=== PATIENT | male | born 1945 | race Caucasian/White ===

== ENCOUNTER 2025-07-24 13:51 | Inpatient (IN) | payer MEDICARE, BC, SELFPAY ==
--- OUTSIDE RECORDS SUMMARY | 2024-01-24 04:30 | XMS_ITS ---
Author Organization [facility] Address [address] [place] [address] Care Team Providers Care Instructor Painting Name Role Phone RYAN Chavez Unavailable [phone] REASON FOR VISIT Personal Hx Of Colon Polyp Z86.010 Encounters Encounter Location Date Provider Diagnosis [facility] [address] [place] [address] 01/24/2024 RYAN HOWE Plan Of Treatment No Information Progress Notes * ALVIN KIMDOB:1945 ( 79 yo M)Acc No.[id number]:01/24/2024 Patient: ALVIN CAMACHO Provider: Nirav HOWE D.O. :1945 A ge:78 Y S ex:Male Date:01/24/2024 Address:[address], [facility] * Images: * Electronic signature of KENNETH HOWE DO on 07/24/2025 at 01:07 PM EDT Sign off status: Pending * Provider: Nirav HOWE D.O. Date: 0 01/24/2024 Generated for Kendy mcgrath/Danilo/eTransmitting on: 1 01:07 PM EDT
--- OUTSIDE RECORDS SUMMARY | 2024-08-15 06:20 | XMS_ITS ---
Author Organization [facility] Address [address] [place] [address] Care Team Providers Care Coal Cager Name Role Phone Not, Entered Primary Care Provider WINNIE Blount Unavailable [phone] Simone Yap Unavailable Unavailable REASON FOR VISIT 2 month f/u Encounters Encounter Location Date Provider Diagnosis [facility] [address] [place] [address] 08/15/2024 WINNIE MAYNARD Plan Of Treatment No Information Progress Notes * Moris KIMDOB:1945 ( 79 yo M)Acc No.[id number]:08/15/2024 Progress Notes Patient: Moris CAMACHO Provider: Fahad Maynard DO :1945 A ge:79 Y S ex:Male Date:08/15/2024 Address:[address] [place], [place] [id number] Pcp:Entered Not Subjective: * Chief Complaints: * 1 . 2 month f/u. * Medical History: Objective: Assessment: Plan: * Treatment: * Billing Information: * Visit Code: * Procedure Codes: * The named appointment provid er may or may not be the originator of this progress note, and it is not deemed complete until electronically signed by the appointment provider. Sign off status: Pending * Provider: Fahad Maynard DO Date: Generated for Diannei alcides/Danilo/eTransmitting on: 05:13 PM EDT
[2025-07-24] VITALS (8 sets, daily range): BP systolic 154–165; BP diastolic 79–90; PULSE 69–87; RESP 16–24; TEMP 36.5; O2SAT 94–95; BMI 29.3
--- NOTE | ~2025-07-24 | MR_ITS ---
EXAMINATION: MR brain/brain stem wo/w con DATE: 07/27/2025 12:39 INDICATION: Loss of consciousness TECHNIQUE: Magnetic resonance imaging (MRI) of the brain and brainstem was performed without and with 20 mL Multihance intravenous contrast. Sequences included sagittal and axial T1-weighted SE, axial diffusion-weighted FS SE, axial 3D SWAN, axial T2-weighted FLAIR, and axial T2-weighted FSE. Postcontrast axial and coronal T1-weighted SE was obtained. Apparent diffusion coefficient (ADC) maps were created. COMPARISON: Head CT dated 07/24/2025 FINDINGS: There are no areas of restricted diffusion to suggest acute infarction. Small old lacunar infarct at the anterior right basal ganglia. No intracranial hemorrhage or abnormal intracranial mass lesion. There are scattered areas of nonspecific increased T2-weighted signal intensity in the cerebral white matter, predominantly involving the deep and periventricular white matter. There are no intraparenchymal signal abnormalities seen on the other pulse sequences. The ventricles are symmetric and normal in size. There are no abnormal extra-axial fluid collections. Flow voids are seen in the cerebral arteries on the T2- weighted sequences consistent with their expected patency. Changes of bilateral intraocular lens replacement. Visualized orbits and soft tissues are unremarkable. There are no areas of abnormal enhancement on the post contrast images. IMPRESSION: 1. 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 No acute intracranial process or abnormally enhancing brain lesions. 2. Moderate scattered nonspecific cerebral white matter T2 hyperintensity which within normal limits for age and likely sequela of chronic small vessel ischemic disease. Reviewed, dictated and finalized at location A. IMPRESSION: 1. 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 No acute intracranial process or abnormally enhancing brain lesions. 2. Moderate scattered nonspecific cerebral white matter T2 hyperintensity which within normal limits for age and likely sequela of chronic small vessel ischem ic disease.
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
--- NOTE | ~2025-07-24 | CT_ITS ---
EXAMINATION: CTA chest PE abdomen pel DATE: 07/24/2025 14:58 INDICATION: Syncope TECHNIQUE: Computed tomography (CT) pulmonary angiogram of the chest was performed with 100 mL Omnipaque-350 intravenous contrast. Additional 3D reconstructions utilizing coronal maximum intensity projection (MIP) were performed. CT of the abdomen and pelvis was performed with intravenous contrast utilizing the same contrast bolus following a short delay. Automated exposure control and iterative reconstruction technique were employed. The dose-length product was 1408.15 mGy-cm. COMPARISON: None FINDINGS: Chest: No pulmonary embolism. Mild dependent atelectasis in bilateral lower lobes. No pneumonia, pulmonary edema, pleural effusion or pneumothorax. Heart size is normal. No pericardial effusion. Thoracic aorta is normal in caliber with no dissection. No pathologically enlarged thoracic lymphadenopathy. Mild thoracic spondylosis. Abdomen/pelvis: Cholecystectomy clips the gallbladder fossa. Liver, spleen, pancreas, bilateral adrenal glands and kidneys are normal. Bladder is normal. Status post prostatectomy. Likely vasectomy clips the left and right sides of the scrotum. Short segment of distal ileum extends into a moderate-sized right inguinal hernia. No bowel obstruction. Normal appendix. There is moderate colonic diverticulosis with a sigmoid predominance. There is no adjacent inflammatory change to suggest diverticulitis. No free intraperitoneal gas or fluid. No pathologically enlarged abdominal or pelvic lymphadenopathy. Mild lumbar sp ondylosis chronic superior endplate compression fracture at L3. Severe right- sided and mild to moderate left-sided hip osteoarthritis. IMPRESSION: 1. No pulmonary embolism or other acute cardiopulmonary disease. 2. Small loop of nonobstructed distal ileum extends into a moderate-sized right inguinal hernia. No bowel obstruction. Reviewed, dictated and finalized at location A.
--- NOTE | ~2025-07-24 | XR_ITS ---
EXAMINATION: XR chest 2V 07/24/2025 14:16 INDICATION: Syncope TECHNIQUE:Frontal and lateral images of the chest were obtained. COMPARISON: None available FINDINGS: Heart is not enlarged. No pneumothorax. No pleural effusion. No free air under the diaphragm. Small opacities in the lower lungs. There is a 7 mm pulmonary nodule in the lower lungs seen in the lateral projection. IMPRESSION: 1. Small opacities in the mid and lower lungs which represents atelectasis/scarring or infiltrates. 2.There is a 7 mm pulmonary nodule in the lower lungs seen in the lateral projection. A chest CT is recommended. Reviewed, dictated and finalized at location Q. IMPRESSION: 1. Small opacities in the mid and lower lungs which represents atelectasis/scar ring or infiltrates. 2.There is a 7 mm pulmonary nodule in the lower lungs seen in the lateral proje ction. A chest CT is recommended.
--- NOTE | ~2025-07-24 | US_ITS ---
EXAMINATION: US carotid duplex BI DATE: 07/24/2025 22:09 INDICATION: Syncope. TECHNIQUE: Grayscale, color Doppler, and pulsed Doppler images of the cervical carotid arteries were obtained. The degree of vessel stenosis is placed in one of the following categories: normal, <50%, 50-69%, >=70% but less than near- occlusion, near-occlusion, or total occlusion. Note that percent stenosis relative to normal distal artery lumen diameter is indirectly measured from velocity measurements as described by Raghavendra, et al. Radiology 2003; 229:340-346. COMPARISON: None. FINDINGS: RIGHT: The right common carotid artery (CCA) peak systolic velocity (PSV) is 81 cm/s. The right internal carotid artery (ICA) PSV is 69 cm/s. The right ICA end- diastolic velocity (EDV) is 16 cm/s. The right ICA/CCA PSV ratio is 0.9. Grayscale and color Doppler images yield an estimate of <50% diameter reduction from plaque in the ICA. There is antegrade flow in the right vertebral artery. LEFT: The left CCA PSV is 77 cm/s. The left ICA PSV is 84 cm/s. The left ICA EDV is 23 cm/s. The left ICA/CCA PSV ratio is 1.1. Grayscale and color Doppler images yield an estimate of <50% diameter reduction from plaque in the ICA. There is antegrade flow in the left vertebral artery. IMPRESSION: 1. <50% stenosis in the right internal carotid artery. 2. <50% stenosis in the left internal carotid artery. Reviewed, dictated and finalized at location E.
--- NOTE | 2025-07-24 13:55 | ECG_ITS ---
Test Date: 2025-07-24 13:59:47 Measurements Intervals [place] Rate: 73 P: -1 SC: 138 QRS: 11 QRSD: 91 T: 30 QT: 365 QTc: 403 Interpretive Statements SINUS RHYTHM EARLY PRECORDIAL R/S TRANSITION BASELINE ARTIFACT- I, III, AVR, AVL, AVF, V1 BORDERLINE ECG No previous ECG available for comparison Electronically Signed On 07-24-2025 14:15:16 CDT by Chris Pham D.O.
[2025-07-24 14:06] LABS: Hematocrit 43.8 % (42.0-52.0); Hemoglobin 15.0 g/dL (14.0-18.0); Immature Granulocyte Percent A 0.2 % (0-0.5); Lymphocytes Absolute Auto 1.68 K/mm3 (0.9-3.2); Mean Corpuscular HGB Conc 34.2 g/dl (32-36); Mean Corpuscular Hemoglobin 32.0 pg (26-34); Mean Corpuscular Volume 93.4 fl (80-100); Nucleated Red Blood Cells Absolute Auto 0.000 K/mm3 (0.0-0.012); Nucleated Red Blood Cells Perc 0.0 % (0.0-0.2); Platelet Count Result 181 k/mm3 (150-375); Red Blood Count 4.69 M/mm3 (4.6-6.20); White Blood Count 4.7 K/mm3 (4.5-10.0)
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
[2025-07-24 14:22] LABS: Alanine Aminotransferase 21 U/L (6-50); Albumin Level 4.5 g/dL (3.5-5.1); Alkaline Phosphatase 66 U/L (38-126); Anion Gap 7 mmol/L (4-12); Aspartate Amino Transferase 22 U/L (17-59); Bilirubin,Total 0.4 mg/dL (0.2-1.3); Blood Urea Nitrogen 16 mg/dL (9-20); Calcium 9.6 mg/dL (8.4-10.2); Carbon Dioxide 25 mmol/L (22-30); Chloride 106 mmol/L (98-107); Estimated CRCL calculation 49 ml/min; Estimated Glomerular Filt Rate 58; Glucose 106 mg/dL (65-110); Potassium 4.7 mmol/L (3.4-5.0); Sodium 138 mmol/L (137-145); Total Protein 7.4 g/dL (6.3-8.2)
[2025-07-24 14:59] LABS: INR 1.0; Prothrombin Time 13.4 Seconds (11.1-14.7)
[2025-07-24 15:00] LABS: Partial Thromboplastin Time 28.8 Seconds (22.3-36.8)
[2025-07-24 15:30] LABS: Magnesium 2.1 mg/dL (1.6-2.3)
[2025-07-24 15:41] LABS: Troponin I < 0.012 ng/mL (0.000-0.034)
--- OUTSIDE RECORDS SUMMARY | 2025-07-24 16:13 | XMS_ITS | Patient Health Record ---
Author Organization [facility] Address [address] [place] [address] Care Team Providers Care Shipping Technician Name Role Phone Not, Entered Primary Care Provider Unavailkathi DONOVANMANWINNIE Unavailable [phone] Simone Yap Unavailable Unavailable Allergies No Known Allergies Reason For Referral No Information Medications Medication SIG (Take, Route, Fr equency, Duration) Notes Start Date End Date Status Simvastatin Unknown Eliquis Unknown Enalapril Maleate Un known Vitamin D Unknown traMADol HCl Unknown Immunizations Vaccine Route Administration Date Status Comme nts zzPPA Unknown 06/13/2024 Administered Social History Tobacco Use: Social History Observation Description Date Details (start date - stop date) Never Smoker NA - NA Tobacco Control (Standard) Question Answer Notes Tobacco use: Nonsmoker AUDIT-C (Standard) Question Answer Notes Did you have a drink contain ing alcohol in the past year? Yes How often did you have six o r more drinks on one occasion in the past year? 4 or more times a week (4 points) How many drinks did you have on a typical day when you were drinking in the past year? 1 or 2 drinks (0 point) How often did you have a dri nk containing alcohol in the past year? 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) Active confirmed Plan Of Treatment Pending Test Test Name Order Date CT Spine Lumbar w/o Contrast 06/23/2024 Insurance Providers Payer Name Payer Address Payer Phone Subscriber Number Group Number Insured Name Patient Relationship to Insured Coverage Start Date Coverage End Date Medicare [address] [place] [address] [id number] Moris Mohamud Self - patient is the insured 5 Blue Cross Blue Shield [address] [place] [address] [id number] Moris Mohamud Self - patient is the insured 4 Medical (General) History Medical History History ICD Code Hypertension High cholesterol Sleep Apnea Surgical History Surgery Date(Month/Year) Prostate Left Wrist Gall Bladder Hospitalization History Reason Date(Month/Year) See Surgical History
--- OUTSIDE RECORDS SUMMARY | 2025-07-24 16:13 | XMS_ITS | Referral Summary ---
Author Organization [employer] ([facility] 05/07/2024) ([employer]) Address [address] [place] [address] Care Team Providers Care Small Business Sales Representative Name Role Phone Jasper Ramirez MD Primary Care Provider [phone] Allergies No known active allergies Medications VARDENAFIL HCL (LEVITRA) 10 MG PO TabIndications: Erectile dysfunction,Cho lesterol serum elevated take 1 Tab by mouth as needed for FOR ERECTILE DYSFUNCTION. 12 Tab 6 0 Active simvastatin (ZOCOR) 10 MG PO TabIndications: Erectile dysfunction,Cho lesterol serum elevated take 1 Tab by mouth once every night at bedtime. Please label bottle must make appointment to get further refills. 90 Tab 1 1 Active Active Problems Problem Noted Date Diagnosed Date Postural lightheadedness 08/01/2008 Elevated serum cholesterol 05/09/2008 Erectile dysfunction 05/09/2008 Social History Tobacco Use Types Packs/Day Years Used Date Smoking Tobacco: Every Day Cigarettes Smokeless Tobacco: Never Alcohol Use Standard Drinks/Week Comments Yes 0.8 (1 standard drink = 0.6 oz p ure alcohol) Sex and Gender Information Value Date Recorded Sex Assigned at Not on file Legal Sex Male 11:20 AM EST Gender Identity Not on file Sexual Orientation Not on file Last Filed Vital Signs Vital Sign Reading Time Taken Comments Blood Pressure 148/78 10/21/2021 1:02 PM EST Pulse 88 10/21/2021 1:02 PM EST Temperature 36.5 C (97.7 F) 10/21/2021 1:02 PM EST Respiratory Rate 18 10/21/2021 1:02 PM EST Oxygen Saturation 94% 10/21/2021 1:02 PM EST Inhaled Oxygen Concentration - - Weight 97.5 kg (215 lb) 10/21/2021 1:02 PM EST Height 185.4 cm (6' 1) 10/21/2021 1:02 PM EST Body Mass Index 28.37 10/21/2021 1:02 PM EST Plan of Treatment Not on file Procedures Procedure Name Priority Date/Time Associated Diagnosis Comments ACUTE HEPATITIS PANEL 01/19/2011 11:45 AM EDT from Last 3 Months or Most Recently Relevant to Health Maintenance Results * ACUTE HEPATITIS PANEL (01/19/2011 11:45 AM EDT) HBSAG Negative (NEG) LIS ANTI HBC IGM Negative IgM anti-HBc not detected.*Does not exclude the possibility *of exposure to or*infection with HBV. (NEG) LIS ANTI-HAV (IGM) Negative IgM anti-HAV not detected.*Does not exclude the possibility *of exposure to or infection with HAV. (NEG) LIS ANTI HCV Negative (NEG) LIS 01/19/2011 11:4 5 AM EDT Jasper Ramirez MD [facility] HBS SEROLOGY ORDERABLES F inal Result LIS from Last 3 Months or Most Recently Relevant to Health Maintenance Care Teams Small Business Sales Representative Relationship Specialty [place] [address] [place] [phone] PCP - General 05/09/08
--- OUTSIDE RECORDS SUMMARY | 2025-07-24 16:13 | XMS_ITS | Clinical Summary ---
Author Organization [employer] ([facility] 05/07/[facility]24) ([employer], [email or web address]) Address [address] [place] [address] Care Team Providers Care Athletic Coordinator Name Role Phone Jasper Ramirez MD Primary Care Provider [phone] Allergies No known active allergies Medications VARDENAFIL [...] Elevated serum cholesterol 05/09/2008 Erectile dysfunction 05/09/2008 Family History Medical History Relation Name Comments Cancer - Colon Mother Cancer - Other Mother Relation Name Status Comments Mother Social History Tobacco Use Types Packs/Day Years [...] 10/21/2021 1:02 PM EST Plan of Treatment Health Maintenance Due Date Last Done Comments SCREENING: DEPRESSION 1957 VACCINE: TETANUS,DIPHTHERIA BOOSTER (TD BOOSTER) EVERY 10 YEARS 1964 VACCINE: ZOSTER (SHINGRIX) (#1) 1995 Advance Care Planning Documentation 2010 SCREENING: FALL RISK 2010 HEALTH MAINTENANCE EXAM (ADULT) 09/01/2011 09/01/2010, 06/05/2009 Pneumococcal Vaccine: 65+ Years (2 of 2 - PCV) 12/21/2020 12/22/2019 VACCINE: INFLUENZA (#1) 2025 07/07/20, 06/26/2020, 07/31/2019, Additional history exists VACCINE: COVID-19 ( season) 2025 07/11/2021, 12/08/2020, 11/17/2020 SCREENING: HEPATITIS C Completed 01/19/2011 VACCINE: HEPATITIS A Aged Out No long er eligible based on patient's age to complete this topic Vaccines: HIB Aged Out No longer elig ible based on patient's age to complete this topic Vaccines: IPV Aged Out No longer elig ible based on patient's age to complete this topic Vaccines: Meningococcal B Aged Out No longer eligible based on patient's age to complete this topic Vaccines: Meningococcal Aged Out No l onger eligible based on patient's age to complete this topic Vaccines: Rotavirus Aged Out No longe r eligible based on patient's age to complete this topic Procedures Procedure Name Priority Date/Time Associated Diagnosis [...] (NEG) LIS 01/19/2011 11:4 5 AM EDT us Jasper Ramirez MD [facility] HBS SEROLOGY ORDERABLES F inal Result LIS from Last 3 Months or Most Recently Relevant to Health Maintenance Care Teams Athletic Coordinator Relationship Specialty [place] [address] [place] [address] PCP - General 05/09/08
--- OUTSIDE RECORDS SUMMARY | 2025-07-24 16:13 | XMS_ITS | Data Portability ---
Author Organization [place] [facility] [place] [facility] [place] [facility], [facility]_PROV OP DIAB EDUCATION_ Address [address] [address] Care Team Providers Care Legal Word Processor Name Role Phone MORIAH NORMAN Referring Provider MORIAH NORMAN Primary Care Provider HEIKE HERBERT Corporate Travel Counselor LUIS A CLEMENS Licensing Registration Examiner AUNDREA LA Gift Officer MEDAROD LONDON Sleep Medicine MORIAH NORMAN Primary Care Provider Assessment Encounter Date Assessment Date Assessment LastModified by Organization Details LastModified Time 12/22/2019 12/22/2019 Medicare wellnes s and age appropriate recommendations regarding safety, fall avoidance, proper diet and nutrition, exercise, and advance directive were reviewed with the patient as well as age appropriate screenings and vaccines from the preventive screenings 5 to 10 year plan, and the patient was given a written copy of the 5 to 10 yr plan. [email or web address] Not available 12/22/2019 15:03:44 12/27/2020 12/27/2020 Medicare wellnes s and age appropriate recommendations regarding safety, fall avoidance, proper diet and nutrition, exercise, and advance directive were reviewed with the patient as well as age appropriate screenings and vaccines from the preventive screenings 5 to 10 year plan, and the patient was given a written copy of the 5 to 10 yr plan. [email or web address] Not available 12/27/2020 14:02:32 Plan of Treatment Reminders Order Date Submit Date Provider Last Modified By Organization Details Last Modified Time Details Appointments None recorded. Lab noninvasive colorectal cancer DNA + occult blood screening, QL, stool - Visit [employer] It Original/use for kit instruction s and additional information . 2021 [facility], [address], [address], [place], [address], 12:18:23 CBC w/ auto diff 2021 [facility] [place] Interface, For Draw Stations, See Lab Location Map, [place], [address], 20:54:56 CMP, serum or plasma 2021 [facility] [place] Interface, For Draw Stations, See Lab Location Map, [place], [address], 21:07:28 lipid panel, serum 2021 [facility] [place] Interface, For Draw Stations, See Lab Location Map, [place], [address], 21:07:27 CBC w/ auto diff 2021 [facility] [place] Interface, For Draw Stations, See Lab Location Map, [place], [address], 08:19:31 CMP, serum or plasma 2021 [facility] [place] Interface, For Draw Stations, See Lab Location Map, [place], [address], 08:19:31 lipid panel, serum 2021 [facility] [place] Interface, For Draw Stations, See Lab Location Map, [place], [address], 03/18/202 2 08:19:31 HbA1c (hemoglobin A1c), blood 2021 [facility] [place] Interface, For Draw Stations, See Lab Location Map, [place], [address], 2 08:19:31 vitamin D, 25-hydroxy, total, serum 2020 021 [facility] [place] Interface, For Draw Stations, See Lab Location Map, [place], [address], 05:01:52 CBC w/ auto diff 2020 021 [facility] [place] Interface, For Draw Stations, See Lab Location Map, [place], [address], 05:01:42 CMP, serum or plasma 2020 021 [facility] [place] Interface, For Draw Stations, See Lab Location Map, [place], [address], 05:01:32 lipid panel, serum 2020 021 [facility] [place] Interface, For Draw Stations, See Lab Location Map, [place], [address], 05:01:42 lipid panel, serum 2020 021 [facility] [place] Interface, For Draw Stations, See Lab Location Map, [place], [address], 05:02:15 CBC w/ auto diff 2020 021 [facility] [place] Interface, For Draw Stations, See Lab Location Map, [place], [address], 05:02:11 CMP, serum or plasma 2020 [facility] [place] Interface, For Draw Stations, See Lab Location Map, [place], [address], 05:01:[address] referral [address] [place], [address], [address], [place], [address], 05:02:05 Procedures None recorded. Surgeries None recorded. Imaging electrocard iogram 2021 [facility] [address], [address], [place], [address], 15:29:28 DEXA 2020 PLACIDO Not available 05:01:32 Medication Orders enalapril maleate 10 mg tablet 2021 [facility] Not available 14:06:53 Patient TargetsNo targets recorded. Patient Instructions Encounter Date Encounter Id Patient Instructions Last Modified By Organization Details Last Modified Time 12/22/2019 [id number] high blood pressure: care instructions [email or web address] Not available 12/22/2019 15:52:49 learning about high blood pressure skehres Not available 12/22/2019 15:52:49 high cholesterol : care instructions skehres Not available 12/22/2019 15:52:49 Continue with a healthy balanced diet and regular exercise. Work to avoid falls by having a safe living environment. In the event that you experience any decline in health, make sure to have your advanced directive in place. Take your medications as directed and if you have any questions or health concerns please contact the office. Provided patient with an updated preventative services checklist for the next 5-10 years. Advised the patient on all screenings and their importance in maintaining good health. Encouraged patient to drink water for overall health and discussed home safety and fall risk prevention measures. Patient verbalized understanding. Will schedule F/U visit with PCP. jesu Not available 12/22/2019 15:18:19 12/27/2020 [id number] high blood pressure: care instructions dlevan Not available 12/27/2020 14:32:39 learning about high blood pressure dlevan Not available 12/27/2020 14:32:39 high cholesterol : care instructions dlevan Not available 12/27/2020 14:32:39 Continue with a healthy balanced diet and regular exercise. Work to avoid falls by having a safe living environment. In the event that you experience any decline in health, make sure to have your advanced directive in place. Take your medications as directed and if you have any questions or health concerns please contact the office. Provided patient with an updated preventative services checklist for the next 5-10 years. Advised the patient on all screenings and their importance in maintaining good health. Encouraged patient to drink water for overall health and discussed home safety and fall risk prevention measures. Patient verbalized understanding. [email or web address] Not available 12/27/2020 14:02:42 Pt educated on fall risk avoidance and safety precautions. Pt advised to get rid of any area rugs or uneven jose elias, as this is a tripping hazard. Pt advised to have hand bars in shower and toilet area. Explained to pt importance of having safety devices in place before something happens, even if never fallen previously. Pt advised of safety mechanisms on stairs and to always have good lighting in home. Discussed pt wearing a fall alert device or having someone call them on a daily basis to check in. [email or web address] Not available 12/27/2020 14:03:05 02/27/2021 [id number] sleep apnea: car e instructions dlevan Not available 02/27/2021 09:32:14 broken wrist: care instructions dlevan Not available 02/27/2021 09:32:14 high blood pressure: care instructions dlevan Not available 02/27/2021 09:32:14 learning about high blood pressure dlevan Not available 02/27/2021 09:32:14 learning about healthy weight dlevan Not available 02/27/2021 09:32:14 high cholesterol : care instructions dlevan Not available 02/27/2021 09:32:13 01/01/2022 [id number] sleep apnea: car e instructions dlevan Not available 01/02/2022 08:19:31 high blood pressure: care instructions dlevan Not available 01/02/2022 08:19:31 learning about high blood pressure dlevan Not available 01/02/2022 08:19:31 learning about healthy weight dlevan Not available 01/02/2022 08:19:31 high blood pressure: care instructions dlevan Not available 01/02/2022 14:06:51 learning about high blood pressure dlevan Not available 01/02/2022 14:06:51 high cholesterol : care instructions dlevan Not available 01/02/2022 08:19:31 We discussed advance planning for 16 minutes. His and he have already taken care of this and all the forms have been appropriately filled out. We went over all his quality measures. And completed the remainder of the Medicare annual wellness visit. His blood pressure medication has been increased and he is to monitor his blood pressure and text me the readings in approximately a week we spoke at length about the importance of excellent control of his blood pressure as he ages. He continues to exercise regularly on the treadmill. He knows he has to go for an annual skin exam for his malignant melanoma and actually he goes twice a year to Dr. Lopez. His lab work was obtained. All his questions were answered. dlevan Not available 01/02/2022 14:02:22 09/08/2022 [id number] sleep apnea: car e instructions dlevan Not available 09/08/2022 14:47:33 high blood pressure: care instructions dlevan Not available 09/08/2022 14:42:26 learning about high blood pressure dlevan Not available 09/08/2022 14:42:26 high cholesterol : care instructions dlevan Not available 09/08/2022 14:47:33 We discussed screening for colon cancer. We discussed the stressors involved with retiring. We discussed his insomnia. We discussed his back pain at length. He is going to a special back clinic next week. He is going to call me and let me know how that goes. I reviewed his previous consultations and laboratory work. Greater than 32 minutes was spent on this case. Moriah Norman DO dlevan Not available 09/08/2022 16:54:39 Reason for Referral Gift Officer Referral for H istory of Malignant melanoma Referring Physician: Moriah Norman, Internal Medicine, Encounter Date: 02/27/2021 Results Created Date Observation Date Name Description Value Unit Range Abnormal Flag Note LastModifiedBy Organization Detail LastModifiedTime 01/04/20 20 01/04/2020 elect rocar diogr am Rate & Rhythm Not Available [facility] [address], [place], [address], 10/06/2018 11:56:57 01/04/20 20 01/04/2020 elect rocar diogr am QRS Not Available [facility] [address], [place], [address], 10/06/2018 11:56:57 01/04/20 20 01/04/2020 elect rocar diogr am NJ Interval Not Available [facility] [address], [place], [address], 10/06/2018 11:56:57 01/04/20 20 01/04/2020 elect rocar diogr am QRS Duration Not Available [facility] [address], [place], [address], 10/06/2018 11:56:57 01/04/20 20 01/04/2020 elect rocar diogr am QT Interval Not Available [facility] [address], [place], [address], 10/06/2018 11:56:57 01/02/20 22 01/01/2022 CBC/P LT/DI FF/IN DICES hemoglobin 15.3 g/dL 13.5-1 7.5 normal OF , CBC AND DIFFE RENTI AL REFER ENCE RANGE S UPDAT ED Not Available [facility] [place] Interface For Draw Stations, See Lab Location Map, [place], [address], 01/02/2022 02:12:38 01/02/20 22 01/01/2022 CBC/P LT/DI FF/IN DICES hematocrit 45.9 % 41.0-5 3.0 normal Not Available [facility] [place] Interface For Draw Stations, See Lab Location Map, [place], [address], 01/02/2022 02:12:38 01/02/20 22 01/01/2022 CBC/P LT/DI FF/IN DICES red blood cell count 4.66 M/uL 4.50-5 .90 normal Not Available [facility] [place] Interface For Draw Stations, See Lab Location Map, [place], [address], 01/02/2022 02:12:38 01/02/20 22 01/01/2022 CBC/P LT/DI FF/IN DICES mean corpuscular volume 98.5 fL 80.0-1 02.0 normal Not Available [facility] Interface For Draw Stations, See Lab Location Map, [place], [address], 01/02/2022 02:12:38 01/02/20 22 01/01/2022 CBC/P LT/DI FF/IN DICES mean corpuscular hemoglobin 32.8 pg 26.0-3 4.0 normal Not Available [facility] [place] Interface For Draw Stations, See Lab Location Map, [place], [address], 01/02/2022 02:12:38 01/02/20 22 01/01/2022 CBC/P LT/DI FF/IN DICES MCHC 33.3 g/dL 31.0-3 7.0 normal Not Available [facility] Interface For Draw Stations, See Lab Location Map, [place], [address], 01/02/2022 02:12:38 01/02/20 22 01/01/2022 CBC/P LT/DI FF/IN DICES RDW 12.6 % 11.0-1 5.5 normal Not Available [facility] Interface For Draw Stations, See Lab Location Map, [place], [address], 01/02/2022 02:12:38 01/02/20 22 01/01/2022 CBC/P LT/DI FF/IN DICES platelet count 246 K/uL 150-40 0 normal Not Available [facility] Interface For Draw Stations, See Lab Location Map, [place], [address], 01/02/2022 02:12:38 01/02/20 22 01/01/2022 CBC/P LT/DI FF/IN DICES WBC 4.70 K/uL 4.00-1 1.00 normal Not Available [facility] Interface For Draw Stations, See Lab Location Map, [place], [address], 01/02/2022 02:12:38 01/02/20 22 01/01/2022 CBC/P LT/DI FF/IN DICES nucleated RBC 0.0 /100_ WBC Not Available [facility] [place] Interface For Draw Stations, See Lab Location Map, [place], [address], 01/02/2022 02:12:38 01/02/20 22 01/01/2022 CBC/P LT/DI FF/IN DICES neutrophils 44.9 % Not Available [facility] [place] Interface For Draw Stations, See Lab Location Map, [place], [address], 01/02/2022 02:12:38 01/02/20 22 01/01/2022 CBC/P LT/DI FF/IN DICES absolute PMN 2.11 K/uL 1.80-7 .50 normal Not Available [facility] Interface For Draw Stations, See Lab Location Map, [place], [address], 01/02/2022 02:12:38 01/02/20 22 01/01/2022 CBC/P LT/DI FF/IN DICES lymphocytes 43.4 % Not Available [facility] [place] Interface For Draw Stations, See Lab Location Map, [place], [address], 01/02/2022 02:12:38 01/02/20 22 01/01/2022 CBC/P LT/DI FF/IN DICES monocytes 9.8 % Not Available [facility] Interface For Draw Stations, See Lab Location Map, [place], [address], 01/02/2022 02:12:38 01/02/20 22 01/01/2022 CBC/P LT/DI FF/IN DICES eosinophils 1.5 % Not Available [facility] Interface For Draw Stations, See Lab Location Map, [place], [address], 01/02/2022 02:12:38 01/02/20 22 01/01/2022 CBC/P LT/DI FF/IN DICES basophils 0.2 % Not Available [facility] Interface For Draw Stations, See Lab Location Map, [place], [address], 01/02/2022 02:12:38 01/02/20 22 01/01/2022 CBC/P LT/DI FF/IN DICES imm grans 0.2 % 0.0-1. 0 normal Not Available [facility] Interface For Draw Stations, See Lab Location Map, [place], [address], 01/02/2022 02:12:38 01/02/20 22 01/01/2022 CBC/P LT/DI FF/IN DICES absolute lymph 2.04 K/uL 1.00-5 .00 normal Not Available [facility] Interface For Draw Stations, See Lab Location Map, [place], [address], 01/02/2022 02:12:38 01/02/20 22 01/01/2022 CBC/P LT/DI FF/IN DICES absolute mono 0.46 K/uL 0.00-1 .00 normal Not Available [facility] Interface For Draw Stations, See Lab Location Map, [place], [address], 01/02/2022 02:12:38 01/02/20 22 01/01/2022 CBC/P LT/DI FF/IN DICES absolute eos 0.07 K/uL 0.00-0 .40 normal Not Available [facility] [place] Interface For Draw Stations, See Lab Location Map, [place], [address], 01/02/2022 02:12:38 01/02/20 22 01/01/2022 CBC/P LT/DI FF/IN DICES absolute baso 0.01 K/uL 0.00-0 .20 normal Test Perfo rmed By: ALAINA WATKINS [facility] . [address] [place], [place],[address] Not Available [facility] Interface For Draw Stations, See Lab Location Map, [place], [address], 01/02/2022 02:12:38 01/02/20 22 01/01/2022 GLYCO -HGB (A1C) hemoglobin A1C 5.8 % 4.0-6. 0 normal HbA1c >6.4% Diagn ostic for Diabe eden. Confi rm with a repea t HbA1c . HbA1c 5.7-6 .4% Indic ates Pre-D iabet es Test Perfo rmed By: ALAINA NULL [facility] . [address] [place], [place] Not Available [facility] [place] Interface For Draw Stations, See Lab Location Map, [place], [address], 01/02/2022 04:42:09 01/02/20 22 01/01/2022 LIPID PANEL cholesterol, total 124 mg/dL 140-19 9 low NCEP Guide lines ATP III Adult s Child /Adol escen t Kurtis able <200 <170 Borde rline 200-2 39 170-1 99 High >239 >199 Not Available [facility] [place] Interface For Draw Stations, See Lab Location Map, [place], [address], 01/02/2022 05:33:50 01/02/20 22 01/01/2022 LIPID PANEL triglyceride 98 mg/dL 30-149 normal NCEP Guide lines (Adul t Treat ment Panel III) Amita l <150 Borde rline 150-2 00 High >200 Not Available [facility] [place] Interface For Draw Stations, See Lab Location Map, [place], [address], 01/02/2022 05:33:50 01/02/20 22 01/01/2022 LIPID PANEL HDL cholesterol 47 mg/dL 40-75 normal NCEP Guide lines (Adul t Treat ment Panel III) Optim al >60 mg/dL Kurtis able >40 mg/dL Undes irabl e <40 mg/dL Not Available [facility] [place] Interface For Draw Stations, See Lab Location Map, [place], [address], 01/02/2022 05:33:50 01/02/20 22 01/01/2022 LIPID PANEL LDL-calculat ed 57 mg/dL 60-99 low NCEP Guide lines ATP III Adult s Child /Adol escen t Optim al <100 <110 Borde rline 130-1 60 >130 High >160 Not Available [facility] [place] Interface For Draw Stations, See Lab Location Map, [place], [address], 01/02/2022 05:33:50 01/02/20 22 01/01/2022 LIPID PANEL serum turbidity CLEAR clear Test Perfo rmed By: ALAINA NULL [facility] . [address], [place] Not Available [facility] [place] Interface For Draw Stations, See Lab Location Map, [place], [address], 01/02/2022 05:33:50 01/02/20 22 01/01/2022 COMP METAB OLIC PANEL W/FAS TING GLUCO SE urea nitrogen 16 mg/dL 8-20 normal Not Available [facility] [place] Interface For Draw Stations, See Lab Location Map, [place], [address], 01/02/2022 05:33:50 01/02/20 22 01/01/2022 COMP METAB OLIC PANEL W/FAS TING GLUCO SE creatinine 1.28 mg/dL 0.70-1 .50 normal Not Available [facility] [place] Interface For Draw Stations, See Lab Location Map, [place], [address], 01/02/2022 05:33:50 01/02/20 22 01/01/2022 COMP METAB OLIC PANEL W/FAS TING GLUCO SE urea nitrogen/cre atinine ratio 12.5 12.0-2 0.0 normal Not Available [facility] [place] Interface For Draw Stations, See Lab Location Map, [place], [address], 01/02/2022 05:33:50 01/02/20 22 01/01/2022 COMP METAB OLIC PANEL W/FAS TING GLUCO SE GFR,calculat ed 54 60-130 low Not Available [facility] Interface For Draw Stations, See Lab Location Map, [place], [address], 01/02/2022 05:33:50 01/02/20 22 01/01/2022 COMP METAB OLIC PANEL W/FAS TING GLUCO SE GFR,af AM 63 60-130 normal Units for GFR are mL/mi n/1.7 3m2 The calcu lated GFR is based on the CKD-E PI equat ion to scree n for CKD. The calcu latio n compe nsate s for femal e, male, and Afric an Ameri can diffe rence s. For some clini maximo condi tions inclu ding extre mes of age and body size, GFR clear ance metho ds may be more appro priat e. Not Available [facility] [place] Interface For Draw Stations, See Lab Location Map, [place], [address], 01/02/2022 05:33:50 01/02/20 22 01/01/2022 COMP METAB OLIC PANEL W/FAS TING GLUCO SE sodium 138 mmol/ L 135-14 5 normal Not Available [facility] [place] Interface For Draw Stations, See Lab Location Map, [place], [address], 01/02/2022 05:33:50 01/02/20 22 01/01/2022 COMP METAB OLIC PANEL W/FAS TING GLUCO SE potassium 4.4 mmol/ L 3.5-5. 4 normal Not Available [facility] [place] Interface For Draw Stations, See Lab Location Map, [place], [address], 01/02/2022 05:33:50 01/02/20 22 01/01/2022 COMP METAB OLIC PANEL W/FAS TING GLUCO SE chloride 105 mmol/ L 98-109 normal Not Available [facility] [place] Interface For Draw Stations, See Lab Location Map, [place], [address], 01/02/2022 05:33:50 01/02/20 22 01/01/2022 COMP METAB OLIC PANEL W/FAS TING GLUCO SE anion gap 9 mmol/ L 4-14 normal Not Available [facility] Interface For Draw Stations, See Lab Location Map, [place], [address], 01/02/2022 05:33:50 01/02/20 22 01/01/2022 COMP METAB OLIC PANEL W/FAS TING GLUCO SE CO2 content 24 mmol/ L 23-34 normal Not Available [facility] Interface For Draw Stations, See Lab Location Map, [place], [address], 01/02/2022 05:33:50 01/02/20 22 01/01/2022 COMP METAB OLIC PANEL W/FAS TING GLUCO SE calcium 9.9 mg/dL 8.4-10 .5 normal Not Available [facility] [place] Interface For Draw Stations, See Lab Location Map, [place], [address], 01/02/2022 05:33:50 01/02/20 22 01/01/2022 COMP METAB OLIC PANEL W/FAS TING GLUCO SE glucose-fast ing 90 mg/dL 70-99 normal Pre-D iabet es: 100-1 25 mg/dL Provi siona l for Diabe eden: >125 mg/dL Confi rm with a repea t test on a day. Not Available [facility] [place] Interface For Draw Stations, See Lab Location Map, [place], [address], 01/02/2022 05:33:50 01/02/20 22 01/01/2022 COMP METAB OLIC PANEL W/FAS TING GLUCO SE bilirubin total 0.4 mg/dL 0.0-1. 5 normal Not Available [facility] Interface For Draw Stations, See Lab Location Map, [place], [address], 01/02/2022 05:33:50 01/02/20 22 01/01/2022 COMP METAB OLIC PANEL W/FAS TING GLUCO SE alkaline phosphatase (total) 65 IU/L 20-130 normal Not Available [facility] [place] Interface For Draw Stations, See Lab Location Map, [place], [address], 01/02/2022 05:33:50 01/02/20 22 01/01/2022 COMP METAB OLIC PANEL W/FAS TING GLUCO SE SGPT(ALT) 23 U/L 0-45 normal Not Available [facility] Interface For Draw Stations, See Lab Location Map, [place], [address], 01/02/2022 05:33:50 01/02/20 22 01/01/2022 COMP METAB OLIC PANEL W/FAS TING GLUCO SE SGOT(AST) 17 IU/L 0-45 normal Not Available [facility] Interface For Draw Stations, See Lab Location Map, [place], [address], 01/02/2022 05:33:50 01/02/20 22 01/01/2022 COMP METAB OLIC PANEL W/FAS TING GLUCO SE total protein 6.9 g/dL 6.2-8. 1 normal Not Available [facility] Interface For Draw Stations, See Lab Location Map, [place], [address], 01/02/2022 05:33:50 01/02/20 22 01/01/2022 COMP METAB OLIC PANEL W/FAS TING GLUCO SE albumin 4.9 g/dL 3.5-5. 0 normal Not Available [facility] Interface For Draw Stations, See Lab Location Map, [place], [address], 01/02/2022 05:33:50 01/02/20 22 01/01/2022 COMP METAB OLIC PANEL W/FAS TING GLUCO SE globulin 2.0 g/dL 1.8-3. 6 normal Not Available [facility] [facility] Interface For Draw Stations, See Lab Location Map, [place], [address], 01/02/2022 05:33:50 01/02/20 22 01/01/2022 COMP METAB OLIC PANEL W/FAS TING GLUCO SE alb/glob ratio 2.5 1.0-2. 4 high Test Perfo rmed By: [facility] [address] [place], [place] Not Available [facility] Interface For Draw Stations, See Lab Location Map, [place], [address], 01/02/2022 05:33:50 09/08/20 22 09/08/2022 CBC/P LT/DI FF/IN DICES hemoglobin 14.4 g/dL 13.5-1 7.5 normal Not Available [facility] Interface For Draw Stations, See Lab Location Map, [place], [address], 09/08/2022 20:54:56 09/08/20 22 09/08/2022 CBC/P LT/DI FF/IN DICES hematocrit 42.7 % 41.0-5 3.0 normal Not Available [facility] Interface For Draw Stations, See Lab Location Map, [place], [address], 09/08/2022 20:54:56 09/08/20 22 09/08/2022 CBC/P LT/DI FF/IN DICES red blood cell count 4.46 M/uL 4.50-5 .90 low Not Available [facility] Interface For Draw Stations, See Lab Location Map, [place], [address], 09/08/2022 20:54:56 09/08/20 22 09/08/2022 CBC/P LT/DI FF/IN DICES mean corpuscular volume 95.7 fL 80.0-1 02.0 normal Not Available [facility] Interface For Draw Stations, See Lab Location Map, [place], [address], 09/08/2022 20:54:56 09/08/20 22 09/08/2022 CBC/P LT/DI FF/IN DICES mean corpuscular hemoglobin 32.3 pg 26.0-3 4.0 normal Not Available [facility] Interface For Draw Stations, See Lab Location Map, [place], [address], 09/08/2022 20:54:56 09/08/20 22 09/08/2022 CBC/P LT/DI FF/IN DICES MCHC 33.7 g/dL 31.0-3 7.0 normal Not Available [facility] Interface For Draw Stations, See Lab Location Map, [place], [address], 09/08/2022 20:54:56 09/08/20 22 09/08/2022 CBC/P LT/DI FF/IN DICES RDW 12.6 % 11.0-1 5.5 normal Not Available [facility] Interface For Draw Stations, See Lab Location Map, [place], [address], 09/08/2022 20:54:56 09/08/20 22 09/08/2022 CBC/P LT/DI FF/IN DICES platelet count 178 K/uL 150-40 0 normal Not Available [facility] Interface For Draw Stations, See Lab Location Map, [place], [address], 09/08/2022 20:54:56 09/08/20 22 09/08/2022 CBC/P LT/DI FF/IN DICES WBC 4.19 K/uL 4.00-1 1.00 normal Not Available [facility] Interface For Draw Stations, See Lab Location Map, [place], [address], 09/08/2022 20:54:56 09/08/2009/08/2022 CBC/P LT/DI FF/IN DICES nucleated RBC 0.0 /100_ WBC Not Available [facility] Interface For Draw Stations, See Lab Location Map, [place], [address], 09/08/2022 20:54:56 09/08/20 22 09/08/2022 CBC/P LT/DI FF/IN DICES neutrophils 47.5 % Not Available [facility] [place] Interface For Draw Stations, See Lab Location Map, [place], [address], 09/08/2022 20:54:56 09/08/20 22 09/08/2022 CBC/P LT/DI FF/IN DICES absolute PMN 1.99 K/uL 1.80-7 .50 normal Not Available [facility] Interface For Draw Stations, See Lab Location Map, [place], [address], 09/08/2022 20:54:56 09/08/2009/08/2022 CBC/P LT/DI FF/IN DICES lymphocytes 36.3 % Not Available [facility] [place] Interface For Draw Stations, See Lab Location Map, [place], [address], 09/08/2022 20:54:56 09/08/20 22 09/08/2022 CBC/P LT/DI FF/IN DICES monocytes 13.1 % Not Available [facility] Interface For Draw Stations, See Lab Location Map, [place], [address], 09/08/2022 20:54:56 09/08/20 22 09/08/2022 CBC/P LT/DI FF/IN DICES eosinophils 2.4 % Not Available [facility] [place] Interface For Draw Stations, See Lab Location Map, [place], [address], 09/08/2022 20:54:56 09/08/20 22 09/08/2022 CBC/P LT/DI FF/IN DICES basophils 0.5 % Not Available [facility] Interface For Draw Stations, See Lab Location Map, [place], [address], 09/08/2022 20:54:56 09/08/20 22 09/08/2022 CBC/P LT/DI FF/IN DICES imm grans 0.2 % 0.0-1. 0 normal Not Available [facility] Interface For Draw Stations, See Lab Location Map, [place], [address], 09/08/2022 20:54:56 09/08/20 22 09/08/2022 CBC/P LT/DI FF/IN DICES absolute lymph 1.52 K/uL 1.00-5 .00 normal Not Available [facility] Interface For Draw Stations, See Lab Location Map, [place], [address], 09/08/2022 20:54:56 09/08/20 22 09/08/2022 CBC/P LT/DI FF/IN DICES absolute mono 0.55 K/uL 0.00-1 .00 normal Not Available [facility] Interface For Draw Stations, See Lab Location Map, [place], [address], 09/08/2022 20:54:56 09/08/20 22 09/08/2022 CBC/P LT/DI FF/IN DICES absolute eos 0.10 K/uL 0.00-0 .40 normal Not Available [facility] Interface For Draw Stations, See Lab Location Map, [place], [address], 09/08/2022 20:54:56 09/08/20 22 09/08/2022 CBC/P LT/DI FF/IN DICES absolute baso 0.02 K/uL 0.00-0 .20 normal Test Perfo rmed By: ALAINA NULL [facility] . [address], [place] Not Available [facility] Interface For Draw Stations, See Lab Location Map, [place], [address], 09/08/2022 20:54:56 09/08/20 22 09/08/2022 LIPID PANEL cholesterol, total 132 mg/dL 140-19 9 low NCEP Guide lines ATP III Adult s Child /Adol escen t Kurtis able <200 <170 Borde rline 200-2 39 170-1 99 High >239 >199 Not Available [facility] Interface For Draw Stations, See Lab Location Map, [place], [address], 09/08/2022 21:07:27 09/08/20 22 09/08/2022 LIPID PANEL triglyceride 140 mg/dL 30-149 normal NCEP Guide lines (Adul t Treat ment Panel III) Amita l <150 Borde rline 150-2 00 High >200 Not Available [facility] Interface For Draw Stations, See Lab Location Map, [place], [address], 09/08/2022 21:07:27 09/08/20 22 09/08/2022 LIPID PANEL HDL cholesterol 42 mg/dL 40-75 normal NCEP Guide lines (Adul t Treat ment Panel III) Optim al >60 mg/dL Kurtis able >40 mg/dL Undes irabl e <40 mg/dL Not Available [facility] Interface For Draw Stations, See Lab Location Map, [place], [address], 09/08/2022 21:07:27 09/08/20 22 09/08/2022 LIPID PANEL LDL-calculat ed 62 mg/dL 60-99 normal NCEP Guide lines ATP III Adult s Child /Adol escen t Optim al <100 <110 Borde rline 130-1 60 >130 High >160 Not Available [facility] Interface For Draw Stations, See Lab Location Map, [place], [address], 09/08/2022 21:07:27 09/08/20 22 09/08/2022 LIPID PANEL serum turbidity CLEAR clear Test Perfo rmed By: [facility] . [address] [place], [place] Not Available [facility] Interface For Draw Stations, See Lab Location Map, [place], [address], 09/08/2022 21:07:27 09/08/20 22 09/08/2022 COMP METAB OLIC PANEL W/FAS TING GLUCO SE urea nitrogen 15 mg/dL 8-20 normal Not Available [facility] Interface For Draw Stations, See Lab Location Map, [place], [address], 09/08/2022 21:07:28 09/08/20 22 09/08/2022 COMP METAB OLIC PANEL W/FAS TING GLUCO SE creatinine 0.94 mg/dL 0.70-1 .50 normal Not Available [facility] Interface For Draw Stations, See Lab Location Map, [place], [address], 09/08/2022 21:07:28 09/08/20 22 09/08/2022 COMP METAB OLIC PANEL W/FAS TING GLUCO SE urea nitrogen/cre atinine ratio 16.0 12.0-2 0.0 normal Not Available [facility] Interface For Draw Stations, See Lab Location Map, [place], [address], 09/08/2022 21:07:28 09/08/20 22 09/08/2022 COMP METAB OLIC PANEL W/FAS TING GLUCO SE GFR,calculat ed 84 60-130 normal Units for GFR are mL/mi n/1.7 3m2 The calcu lated GFR is based on the CKD-E PI equat ion to scree n for CKD. The calcu latio n compe nsate s for femal e and male diffe rence s. For some clini maximo condi tions inclu ding extre mes of age and body size, GFR clear ance metho ds may be more appro priat e. Not Available [facility] Interface For Draw Stations, See Lab Location Map, [place], [address], 09/08/2022 21:07:28 09/08/20 22 09/08/2022 COMP METAB OLIC PANEL W/FAS TING GLUCO SE sodium 138 mmol/ L 135-14 5 normal Not Available [facility] Interface For Draw Stations, See Lab Location Map, [place], [address], 09/08/2022 21:07:28 09/08/20 22 09/08/2022 COMP METAB OLIC PANEL W/FAS TING GLUCO SE potassium 4.5 mmol/ L 3.5-5. 4 normal Not Available [facility] Interface For Draw Stations, See Lab Location Map, [place], [address], 09/08/2022 21:07:28 09/08/20 22 09/08/2022 COMP METAB OLIC PANEL W/FAS TING GLUCO SE chloride 104 mmol/ L 98-109 normal Not Available [facility] Interface For Draw Stations, See Lab Location Map, [place], [address], 09/08/2022 21:07:28 09/08/20 22 09/08/2022 COMP METAB OLIC PANEL W/FAS TING GLUCO SE anion gap 8 mmol/ L 4-14 normal Not Available [facility] Interface For Draw Stations, See Lab Location Map, [place], [address], 09/08/2022 21:07:28 09/08/20 22 09/08/2022 COMP METAB OLIC PANEL W/FAS TING GLUCO SE CO2 content 26 mmol/ L 23-34 normal Not Available [facility] Interface For Draw Stations, See Lab Location Map, [place], [address], 09/08/2022 21:07:28 09/08/20 22 09/08/2022 COMP METAB OLIC PANEL W/FAS TING GLUCO SE calcium 9.6 mg/dL 8.4-10 .5 normal Not Available [facility] Interface For Draw Stations, See Lab Location Map, [place], [address], 09/08/2022 21:07:28 09/08/20 22 09/08/2022 COMP METAB OLIC PANEL W/FAS TING GLUCO SE glucose-fast ing 103 mg/dL 70-99 high Pre-D iabet es: 100-1 25 mg/dL Provi siona l for Diabe eden: >125 mg/dL Confi rm with a repea t test on a . Not Available [facility] Interface For Draw Stations, See Lab Location Map, [place], [address], 09/08/2022 21:07:28 09/08/20 22 09/08/2022 COMP METAB OLIC PANEL W/FAS TING GLUCO SE bilirubin total 0.4 mg/dL 0.0-1. 5 normal Not Available [facility] Interface For Draw Stations, See Lab Location Map, [place], [address], 09/08/2022 21:07:28 09/08/20 22 09/08/2022 COMP METAB OLIC PANEL W/FAS TING GLUCO SE alkaline phosphatase (total) 65 IU/L 20-130 normal Not Available [facility] [place] Interface For Draw Stations, See Lab Location Map, [place], [address], 09/08/2022 21:07:28 09/08/20 22 09/08/2022 COMP METAB OLIC PANEL W/FAS TING GLUCO SE SGPT(ALT) 19 U/L 0-45 normal Not Available [facility] Interface For Draw Stations, See Lab Location Map, [place], [address], 09/08/2022 21:07:28 09/08/20 22 09/08/2022 COMP METAB OLIC PANEL W/FAS TING GLUCO SE SGOT(AST) 14 IU/L 0-45 normal Not Available [facility] Interface For Draw Stations, See Lab Location Map, [place], [address], 09/08/2022 21:07:28 09/08/20 22 09/08/2022 COMP METAB OLIC PANEL W/FAS TING GLUCO SE total protein 6.6 g/dL 6.2-8. 1 normal Not Available [facility] Interface For Draw Stations, See Lab Location Map, [place], [address], 09/08/2022 21:07:28 09/08/20 22 09/08/2022 COMP METAB OLIC PANEL W/FAS TING GLUCO SE albumin 4.6 g/dL 3.5-5. 0 normal Not Available [facility] Interface For Draw Stations, See Lab Location Map, [place], [address], 09/08/2022 21:07:28 09/08/20 22 09/08/2022 COMP METAB OLIC PANEL W/FAS TING GLUCO SE globulin 2.0 g/dL 1.8-3. 6 normal Not Available [facility] Interface For Draw Stations, See Lab Location Map, [place], [address], 09/08/2022 21:07:28 09/08/20 22 09/08/2022 COMP METAB OLIC PANEL W/FAS TING GLUCO SE alb/glob ratio 2.3 1.0-2. 4 normal Test Perfo rmed By: ALAINA NULL [facility] . [address] [place], [place],[address] Not Available [facility] Interface For Draw Stations, See Lab Location Map, [place], [address], 09/08/2022 21:07:28 01/31/20 24 01/31/2024 SURGI MAXIMO PATHO LOGY surgical pathology SEE RESULT S BELOW [facility] [address] [place] [place] [address] [place], [place] Phone : [phone] Phone : Fax: Fax: ----- ----- ----- ----- ----- ----- ----- ----- ----- ----- ----- ----- ----- ----- ----- ----- Name: QUEENIE ROMEO Age/S ex: 78/M Locat ion: [id number] Unit# : [id number] Statu s: REG CLI Room/ Bed: Re01/30 Disch : Att Dr: JACQUELINE Berg DO ----- ----- ----- ----- ----- ----- ----- ----- ----- ----- ----- ----- ----- ----- ----- ----- Spec #: [id number] Recd: 01/31-0 751 Statu s: ADARSH Schmitt #: [id number] SpTyp e: SURG Sub Dr: JACQUELINE Berg DO CLINI MAXIMO HISTO RY Perso nal histo ry of colon polyp s, famil y histo ry of colon cance r in mothe r GROSS DESCR IPTIO N Sourc e of speci men: 1. Cecum polyp 2. Ascen ding polyp 1. Recei priyanka in forma madelyn label ed cecu m polyp are multi ple piece s of pierce tissu e measu ring 9 x 8 x 1 mm in aggre gate. All in one. 2. Recei priyanka in forma madelyn label ed asce nding polyp are three piece s of pierce tissu e measu ring from 1-3 mm. All in one. ec/jf /AP DIAGN OSIS 1. CECUM POLYP , BIOPS Y: PORTI ONS OF TUBUL AR ADENO MA. 2. ASCEN DING COLON POLYP , BIOPS Y: PORTI ONS OF TUBUL AR ADENO MA. ----- ----- ----- ----- ----- ----- ----- ----- ----- ----- ----- ----- ----- ----- ----- ----- Lilian FRANK MD 02/01 1237 ----- ----- ----- ----- ----- ----- ----- ----- ----- ----- ----- ----- ----- ----- ----- ----- END OF REPOR T ORDER ED BY: ELINOR TAMAYO COPIE S SENT TO: FAIZA WILLSON , THIS IS A COPIE S TO REPOR T Not Available [facility] Interface For Draw Stations, See Lab Location Map, [place], [address], 02/02/2024 12:39:43 09/08/2010/06/2022 elect rocar diogr am No observ ation record ed. [facility] Receptionist [id number], [place], [address], 10/06/2022 11:19:52 09/08/20 elect rocar diogr am No observ ation record ed. [email or web address] Not Available 2021 15:29:52 Result Notes None recorded. 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 Nelia Fabby Tres edt [place] [facility] [place] 9 14:01:25 Hyperlip idemia 28285901 Active 2014 Moriah Norman DO [address] [place], [address], [place] [facility] [place] 9 15:06:57 Impotenc e of organic origin Completed 201411/11/2018 Nelia Joshua edt [place] [facility] [place] 9 13:48:23 [facility] hyperten forrest 13833436 Active 2017 Moriah Norman DO [address] [place], [address], [place] [facility] [place] 8 11:50:41 Plantar fasciiti s 398492388 Completed 201710/06/2018 Moriah Norman [place] [address] [place], [address], [place] [facility] [place] 8 12:00:07 Primary malignan t neoplasm of prostate 47069970 Completed 201710/06/2018 Moriah Norman DO [address] [place], [address], [place] [facility] [place] 9 13:06:09 Primary malignan t neoplasm of prostate 98342442 Completed 201710/06/2018 Moriah Norman DO [address] [place], [address], [place] [facility] [place] 9 13:06:09 Primary malignan t neoplasm of prostate 48735027 Active 2018 Moriah Norman DO [address] [place], [address], [place] [facility] [place] 9 13:06:09 Impotenc e of organic origin Active 2018 Nelia Barrios Tres edt null[place] [facility] [place] 9 13:48:23 Acquired hallux valgus 64108666 Active 2018 Moriah Norman DO [address] [place], [address], [place] [facility] [place] 9 11:56:41 Congenit al convex pes valgus Active 2018 Moriah Norman DO [address] [place], [address], [place] [facility] [place] 9 11:57:54 History of Malignan t melanoma 471747167 Completed 201807/31/2019 Removal Reason: its a family history of melanoma Moriah Norman DO [address] [place], [address], [place] [facility] [place] 9 12:55:15 Body mass index 25-29 - overweig ht 434842803 Active 2020 Nelia Fabby Joshua edt null, [place] [facility] [place] 1 11:04:21 Obstruct alexandra sleep apnea syndrome 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 Procedures Surgical History Date Name Laterality Status Provider Name and Address Organization Details Recorded Time 022 * Fall Risk Assessment completed Moriah Norman DO [address] [place], [address], [place] [facility] [place] 01/02/2022 13:59:27 021 * Fall Risk Assessment completed Nelia Dangelodt [place] [facility] [place] 12/27/2020 14:02:07 020 * Fall Risk Assessment completed Nelia Dangelodt [place] [facility] [place] 12/22/2019 15:01:22 020 Cataract Surgery completed Nelia Dangelodt [place] [facility] [place] 12/27/2020 14:01:43 019 * AUDIT-C Questionnaire completed Nelia Syed [place] [facility] [place] 11/11/2018 13:26:43 019 * Fall Risk Assessment completed Nelia Dangelodt [place] [facility] [place] 11/11/2018 13:26:47 019 Cataract Surgery completed Nelia Dangelodt [place] [facility] [place] 12/27/2020 14:01:31 010 prostatectomy completed Nelia Dangelodt [place] [facility] [place] 11/11/2018 13:54:19 008 Cholecystectomy completed Nelia Kelleystaedt [place] [facility] [place] 11/11/2018 13:54:02 995 Hernia Repair completed Nelia Kelleystaedt [place] [facility] [place] 11/11/2018 13:54:43 980 Vasectomy completed Nelia Syed [place] [facility] [place] 11/11/2018 13:54:31 Imaging Results None recorded. Procedure Notes None recorded. Medical Equipment None Reported. Allergies No known drug allergies Medications Name Sig Start Date Stop Date Status Note LastModified by Organization Details LastModified Time enalapril maleate 10 mg tablet take 1 tablet by mouth twice a day active Not Available Not Available No t Available enalapril maleate 5 mg tablet take 1 tablet by mouth once daily 01/02 completed Not Available Not Available Not Available peg-electro lyte solution 420 gram oral solution 12/31 completed Not Available Not Available Not Available tramadol 50 mg tablet take 1 to 2 tablets by mouth every 6 hours if needed for pain 09/08 completed Not Available Not Available Not Available sildenafil 100 mg tablet take 1 tablet by mouth once daily if needed active Not Available Not Available No t Available simvastatin 20 mg tablet take 1 tablet by mouth at bedtime active Not Available Not Available No t Available fluorometho lone 0.1 % eye drops,suspe nsion instill 1 drop into left eye four times a day 01/01 completed Not Available Not Available Not Available brimonidine 0.2 % eye drops instill 1 drop into both eyes twice a day 09/08 completed Not Available Not Available Not Available mupirocin 2 % topical ointment apply to affected area ON THE SCALP twice a day active Not Available Not Available No t Available timolol maleate 0.5 % eye drops INSTILL 1 DROP IN AFFECTED EYE(S) TWICE A DAY active Not Available Not Available No t Available Alphagan P 0.1 % eye drops instill 1 drop INTO AFFECTED EYE(S) every 8 hours 09/08 completed Not Available Not Available Not Available Shingrix (PF) 50 mcg/0.5 mL intramuscul ar suspension, kit inject 0.5 millilite r intramusc ularly active Not Available Not Available No t Available Vitals Date Recorded Body height Body mass index (BMI) Body weight Pain severity - 0-10 verbal numeric rating [Score] - Reported Systolic And Diastolic Provider Name and Address Organization Details Last Updated DateTime 12/22/2019 185.42 cm 28.4 kg/m2 34979.3 6 g 0 150/80 mm[Hg] Nelia Syed [place] [facility] [place] 0 14:53:58 Date Recorded Body height Body mass index (BMI) Body weight Body temperature Pain severity - 0-10 verbal numeric rating [Score] - Reported Systolic And Diastolic Provider Name and Address Organization Details Last Updated DateTime 1 185.42 cm 26.8 kg/m2 41223.2 5 g 97.9 [degF] 0 134/80 mm[Hg] Nelia tong [place] [facility] [place] 1 13:48:26 Date Recorded Body height Body mass index (BMI) Body weight Heart rate Body temperature Oxygen saturation Oxygen saturation in Arterial blood by Pulse oximetry Pain severity - 0-10 verbal numeric rating [Score] - Reported Systolic And Diastolic Systolic And Diastolic Provider Name and Address Organization Details Last Updated DateTime 2 185.42 cm 27.8 kg/m2 22317.9 9 g 92 /min 98.3 [degF] 95 % 95 % 0 156/77 mm[Hg] 145/78 mm[Hg] Joi Carter [place] [facility] [place] 2 16:21:09 Date Recorded Body height Body mass index (BMI) Body weight Heart rate Respiratory rate Body temperature Oxygen saturation Oxygen saturation in Arterial blood by Pulse oximetry Systolic And Diastolic Provider Name and Address Organization Details Last Updated DateTime 1 185.42 cm 26.9 kg/m2 11888.8 4 g 66 /min 16 /min 97.9 [degF] 94 % 94 % 141/91 mm[Hg] Sona Fontana [place] [facility] [place] 1 08:43:48 Date Recorded Body height Body mass index (BMI) Body weight Heart rate Body temperature Oxygen saturation Oxygen saturation in Arterial blood by Pulse oximetry Systolic And Diastolic Provider Name and Address Organization Details Last Updated DateTime 2 185.42 cm 27.7 kg/m2 15654.4 g 65 /min 97.2 [degF] 95 % 95 % 148/88 mm[Hg] Joi Raul [place] - [facility] 14:39:36 Social History Question Answer Notes LastModified by Organizat ion Details LastModified Time Tobacco Smoking Status Never Smoker Moriah Norman, [address], [place], [address], [facility]/[place] 11/11/2018 13:03:35 Do You Have An Advance Directive? Yes *ACP - Patient Voluntarily Discussed Advance Care Planning With Nelia Syed (on Behalf Of Moriah Norman) On 12/27/2020 For 15 Minutes Or Less For An Annual Discussion. Patient Named Nelia Mohamud (spouse) As Preferred Healthcare Agent. Agent's Phone Number Is: [phone]; [phone]. Patient Indicated, I Prefer Life Support Treatment Only If My Medical Team Believes That My Chances Of Recovery Are Likely.* [id number] Information not available 12/31/2020 Are You Blind Or Do You Have Difficulty Seeing? No [email or web address] Information not available 01/01/2022 What Is Your Level Of Caffeine Consumption? Occasional 2 Mugs Of Tea Daily Information not available 12/31/2020 How Much Tobacco Do You Chew? None Information not available 11/11/2018 Are You Deaf Or Do You Have Serious Difficulty Hearing? No Information not available 01/01/2022 What Type Of Diet Are You Following? REGULAR Information not available 11/11/2018 Which Illicit Or Recreational Drugs Have You Used? None Information not available 11/11/2018 Do You Reside In Or Have You Traveled To An Area Where Ebola Virus Transmission Is Active? No [email or web address] Information not available 01/01/2022 Education Post Graduate Information not available 11/11/2018 What Is The Highest Grade Or Level Of School You Have Completed Or The Highest Degree You Have Received? [id number] [email or web address] Information not available 09/08/2022 Are There Any Guns Present In Your Home? Yes Information not available 12/31/2020 Hard Of Hearing Or Deaf In One Or Both Ears? No Information not available 11/11/2018 Single Or Multi-level Home/work? Multi Level Home Information not available 11/11/2018 Legally Blind In One Or Both Eyes? No Information not available 11/11/2018 Live Alone Or With Others? With Others Information not available 11/11/2018 Have You Had A Fever And/or Symptoms Of A Lower Respiratory Illness (cough, Difficulty Breathing, Etc)? No Information not available 12/27/2020 Have You Had Any Of These Symptoms: Chills ,Headache, Fatigue, Muscle Or Body Aches , Sore Throat, New Loss Of Taste Or Smell, Nausea Or Vomiting, Or Diarrhea? No Information not available 12/27/2020 Have You Had A COVID-19 Vaccine In The Last 7 Days? No Information not available 12/27/2020 (If Yes To Covid Vaccine)- Which Vaccine? [employer] HAD BOTH VACCINE [email or web address] Information not available 01/01/2022 CULTURAL AND ADVENT BELIEFS - Are There Any Cultural And/or Samaritan Beliefs That We Should Be Aware Of While Providing Care? (If Yes, Make Comment In Note Section) No [email or web address] Information not available 01/01/2022 EMOTIONAL BARRIERS - Are There Any Emotional Barriers That We Should Be Aware Of While Providing Care? (such As Anger, Pride, Anxiety, Feeling Sad, Feeling Out Of Control Or Other Emotional Barrier.) If Yes, Please Specify In The Note Section No [email or web address] Information not available 01/01/2022 BARRIERS TO COMMUNICATION - Are There Any Other Barriers With Communicating That We Should Be Aware Of While Providing Care? If Yes, Please Specify In The Note Section No [email or web address] Information not available 01/01/2022 PHYSICAL OR COGNITIVE LIMITATIONS - Are There Any Physical Or Cognitive Limitations That We Should Be Aware Of While Providing Care? (such As Memory, Language Or Speech Difficulties, Dyslexia Or Other Learning Disabilities, Brain Or Spinal Cord Injury, Visual Or Hearing Impairment, Epilepsy Or Any Other Medical Condition) If Yes, Please Specify In The Note Section No [email or web address] Information not available 01/01/2022 LEARNING NEEDS ASSESSMENT COMPLETED ON (Select Yes For All That Apply) 01/01/2022 [email or web address] Information not available 01/01/2022 In The Past 10 Days, Have You Been Told You May Have COVID-19 Or Have Been Tested For COVID-19? No Information not available 09/08/2022 Advance Directive Patient Advocate Name Nelia Mohamud Information not available 11/11/2018 Advance Directive Patient Advocate Relationship To Patient Spouse Information not available 11/11/2018 Advance Directive Patient Advocate ; [phone] Information not available 12/31/2020 Marital Status Informa tion not available 11/11/2018 What Was The Date Of Your Most Recent Tobacco Screening? 12/27/2020 Information not available 12/31/2020 Have You Ever Been Counseled For Unhealthy Alcohol Use? No Information not available 09/08/2022 Seat Belts Used Routinely Yes Information not available 11/11/2018 Smoke Alarm In Home Yes Information not available 11/11/2018 General Stress Level Low Information not available 11/11/2018 Do You Use Sunscreen Routinely? Yes Information not available 12/31/2020 Has Tobacco Cessation Counseling Been Provided? No Information not available 12/31/2020 Do You Have Difficulty Walking Or Climbing Stairs? No Information not available 01/01/2022 Are You Currently In School? No [email or web address] Information not available 01/01/2022 Sex: Male Functional Status Question Answer Note LastModified by Organizat ion Details LastModified Time How many times per week do you consume alcohol? 3-4 times per week [email or web address] Information not available 01/01/2022 Do you use any illicit or recreational drugs? No [email or web address] Information not available 01/01/2022 Do you or have you ever used any other forms of tobacco or nicotine? No [email or web address] Information not available 01/01/2022 What is your level of alcohol consumption? Moderate wine/beer Information not available 11/11/2018 Are you currently employed? Yes Information not available 01/01/2022 Do you have transportation difficulties? No [email or web address] Information not available 01/01/2022 Are you able to walk independently without assistance or assistive devices? YESWOREST [email or web address] Information not available 01/01/2022 Do you have difficulty doing errands alone? No [email or web address] Information not available 01/01/2022 Are you able to care for yourself independently? 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 No [email or web address] Information not available 01/01/2022 What is your exercise level? Moderate treadmill 4-5 days/week, back exercises Information not available 12/27/2020 Mental Status Question Answer Note LastModified by Organization D etails LastModified Time Do you have difficulty concentrating, remembering or making decisions? No [email or web address] Information no t available 01/01/2022 Family History Relationship Description Onset Age of this Age Resolved Age Notes LastModified by Organization Details LastModified Time Mother Malignant neoplasm of colon 76 [email or web address] Not available 13:08:36 Father Old-age 84 Not available 12/27/2020 13:14:57 Father Alcoholism Not availab le 12/27/2020 13:14:57 Notes:extensive family histo ry of melanoma Medical History Condition Response colonoscopy Y cancer Y hyperlipidemia Y hearing problems N tobacco abuse N hearing loss N depression N bladder problems N high blood pressure Y vision or eye problems Y anxiety disorder N back pain Y Immunizations Vaccine Type Date Status Note Provider Nam e and Address Organization Details Recorded Time Pneumococcal conjugate PCV 13 8 completed Not Available [facility] 11/04/2019 04:02:07 Influenza, split virus, quadrivalent, preservative 9 completed Kimber perea [facility] 02/09/2020 13:44:06 pneumococcal polysaccharide PPV23 0 completed Kimber perea [place] [facility] 12/22/2019 15:29:43 influenza, unspecified formulation 3 completed Not Available [facility] 11/18/2019 02:18:19 COVID-19, mRNA, LNP-S, PF, 30 mcg/0.3 mL dose 1 completed Ale Holly null, [place] [facility] 11/17/2020 15:16:08 COVID-19, mRNA, LNP-S, PF, 30 mcg/0.3 mL dose 1 completed Ulises Roman null, [place] [facility] 12/11/2020 17:10:48 zoster recombinant 1 completed Nelia Syed [place], [place] [facility] [place] 12/27/2020 13:33:31 Past Encounters Encounter ID Performer Location Encounter Start Date Encounter Closed Date Diagnosis/Indication Diagnosis SNOMED-CT Code Diagnosis ICD10 Code Diagnosis IMO Codes Diagnosis Note [id number] Moriah Simsheriberto [facility] [facility] [address] [place] [address] 10/06/2018 10:57:48 10/06/2018 12:25:21 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 Hyperlipidemia 07653742 E78.2 Administra tion of pneumococcal vaccine 36707633 Z23 Essential hypertension 91332574 I10 Primary ma lignant neoplasm of prostate 95808458 C61 [id number] Moriahdottie NormanDO [facility] [address] [place] [address] 11/11/2018 12:53:21 11/11/2018 13:58:41 Adult health examination 370196867 Z00.00 Medicare wellness and age appropriat e recommenda tions regarding safety, fall avoidance, proper diet and nutrition, exercise, and advanced directive were reviewed with the patient as well as age appropriat e screenings and vaccines. Recommende d flu vaccine - will get @ Rx since office is out of stock. Recommende d colonoscop y screening - will get referral from PCP. All other age appropriat e preventati ve screenings are UTD. F/U visit scheduled with PCP. Essential hypertension 54076352 I10 monitored by PCP, encouraged low sodium diet and regular exercise. Hyperlipidemia 18433138 E78.2 continue statin as directed, monitored by PCP. Body mass index 25-29 - overweight 359295377 Z68.29 discussed diet and exercise regimen [id number] Moriah Norman DO [facility] [address] [place] [address] 11/11/2018 13:43:24 11/11/2018 15:09:47 Screening for malignant neoplasm of colon 472692806 Z12.11 Primary ma lignant neoplasm of prostate 30906625 C61 Essential hypertension 84351809 I10 monitored by PCP, encouraged low sodium diet and regular exercise. Impotence of organic origin 880469250 N52.9 Hyperlipidemia 84421963 E78.2 continue statin as directed, monitored by PCP. Benign ess ential hypertension 4718271 I10 [id number] Moriah Norman DO [facility] [address] [place] [address] 01/06/2019 13:52:15 01/06/2019 14:44:14 Essential hypertension 91376548 I10 monitored by PCP, encouraged low sodium diet and regular exercise. Primary ma lignant neoplasm of prostate 52909225 C61 Impotence of organic origin 053664738 N52.9 Hyperlipidemia 24039887 E78.2 continue statin as directed, monitored by PCP. 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 Family his tory of malignant melanoma 982081930 Z80.7 [id number] Luigi Galvez DO [facility] [address] [place] [address] 12/22/2019 14:37:48 12/22/2019 15:32:27 Adult health examination 940921466 Z00.00 Medicare wellness and age appropriat e recommenda tions regarding safety, fall avoidance, proper diet and nutrition, exercise, and advanced directive were reviewed with the patient as well as age appropriat e screenings and vaccines. Flu vaccine current. PPV-23 vaccine administer ed in office. All other age appropriat e preventati ve screenings are up to date. Will schedule F/U visit with PCP. Essential hypertension 70461529 I10 continue medication as directed, monitored by PCP. encouraged low sodium diet. Hyperlipidemia 61604820 E78.5 continue statin as directed, monitored by PCP. Immunization due 3897507 08 Z28.3 Primary ma lignant neoplasm of prostate 21104797 C61 monitored by urology, PCP. Acquired h allux valgus 54440538 M20.10 follows with podiatry. [id number] Moriah Norman DO [facility] [address] [place] [address] 12/27/2020 13:12:09 12/27/2020 14:14:30 Adult health examination 581815203 Z00.00 Medicare wellness and age appropriat e recommenda tions regarding safety, fall avoidance, proper diet and nutrition, exercise, and advanced directive were reviewed with the patient as well as age appropriat e screenings and vaccines. Flu and Covid 19 vaccines up to date. Routine screening labs ordered - will have labs done at next visit with PCP. All other age appropriat e preventati ve screenings are UTD. F/U visit scheduled with PCP. Essential hypertension 63764297 I10 monitored by PCP, encouraged low sodium diet and regular exercise. Hyperlipidemia 52268022 E78.2 continue statin as directed, monitored by PCP. Primary ma lignant neoplasm of prostate 66434793 C61 follows with urology. Screening for cardiovascular system disease 380316337 Z13.6 Diabetes m ellitus screening 026371926 Z13.1 Acquired h allux valgus 65523524 M20.11 follows with podiatry. Body mass index 25-29 - overweight 885871846 Z68.29 discussed diet and exercise regimen, encouraged regular exercise and continued weight loss. Advance care planning 71 3283478 Z71.89 ACP - Patient voluntaril y discussed advance care planning with Nelia vogel (on behalf of Moriah Norman) on 12/27/2020 for 15 minutes or less for an annual discussion . Patient named Nelia Mohamud (spouse) as preferred healthcare agent. Agent's phone number is: ; . Patient indicated, I prefer life support treatment only if my medical team believes that my chances of recovery are likely. [id number] Moriah Norman [facility] [address] [place] [address] 02/27/2021 08:37:13 02/27/2021 09:35:55 Acquired hallux valgus 46332804 M20.11 follows with podiatry. Body mass index 25-29 - overweight 624640324 Z68.29 discussed diet and exercise regimen, encouraged regular exercise and continued weight loss. Essential hypertension 77701143 I10 monitored by PCP, encouraged low sodium diet and regular exercise. Hyperlipidemia 37291946 E78.2 continue statin as directed, monitored by PCP. Obstructiv e sleep apnea syndrome 48670614 G47.33 working well.Sleep ing well except for waking up at 4 because of anxieties. Gets up and reads a little and then can go back to sleep. Primary ma lignant neoplasm of prostate 74195137 C61 follows with urology. Screening for osteoporosis 076693599 Z13.820 Fracture a t wrist and/or hand level 332184284 S62.92XD History of Malignant melanoma 831971902 Z85.89 [id number] Moriah Norman [facility] [address] [place] [address] 01/01/2022 13:56:08 01/01/2022 15:06:31 Acquired hallux valgus 72433926 M20.11 follows with podiatry. Body mass index 25-29 - overweight 334076293 Z68.29 discussed diet and exercise regimen, encouraged regular exercise and continued weight loss. Essential hypertension 86673105 I10 encouraged low sodium diet and regular exercise. Hyperlipidemia 57198890 E78.2 continue statin as directed Obstructiv e sleep apnea syndrome 58477724 G47.33 working well.Sleep ing well except for waking up at 4 because of anxieties. Gets up and reads a little and then can go back to sleep. Primary ma lignant neoplasm of prostate 64635283 C61 follows with urology. Glaucoma 11863147 H40.9 Family his tory of malignant melanoma 004518334 Z80.7 Benign ess ential hypertension 4686071 I10 [id number] Moriah Norman, [facility] [address] [place] [address] 09/08/2022 13:57:17 09/08/2022 15:29:27 Essential hypertension 45902901 I10 encouraged low sodium diet and regular exercise. Screening for malignant neoplasm of colon 242913989 Z12.11 His last colonoscop y was 2018. His mother had colon cancer in her mid 70s. He had 1 polyp. After October he is going to do a Cologuard. We talked about the risk and benefits of colonoscop y and Cologuard. Hyperlipidemia 42878280 E78.2 continue statin as directed Obstructiv e sleep apnea syndrome 24981199 G47.33 He is no longer sleeping well. He has never had his apparatus we titrated. It is over 10 years old. I have strongly encouraged him to go back to [facility] and have it read titrated and see if that is one of the reasons why his sleep is so interrupte d. He does practice good sleep hygiene. If he does wake up he gets up and goes to another room and reads until he is sleepy and then goes back to bed. Acquired h allux valgus 54614043 M20.11 follows with podiatry. Lumbosacra l radiculopathy 6086683 M54.17 Goals Section Goal Description Progress Status Start Date LastModified by Organization Details LastModified Time Low Fat Diet patient will maintain a healthy, low fat/chol diet and continue to exercise and stay active as tolerated to achieve weight loss. [facility]Change active [email or web address] P[facility] Information not available 07/26/2021 21:18:35 Health Concerns Section Related Observation LastModified by Organization Detai ls LastModified Time None Recorded Concern Status LastModified by Organization Details LastModified Time None Recorded Advance Directives Directive Y: *ACP - Patient voluntaril y discussed advance care planning with Nelia Syed (on behalf of Moriah Norman) on 12/27/2020 for 15 minutes or less for an annual discussion. Patient named Nelia Mohamud (spouse) as preferred healthcare agent. Agent's phone number is: [phone]; [phone].Patient indicated, I prefer life support treatment only if my medical team believes that my chances of recovery are likely.* Payers Insurance Date Sequence Insurance Name Policy Number Policy Gonsalves Covered Member ID Gonsalves Member ID Guarantor Name 09/05/2022 1 [place] Moris Mohamud [id number] Moris Mohamud 09/05/2022 [place] Moris Mohamud [id number] Moris Mohamud 11/13/2020 2 [employer] [employer] [place]HMO) [id number] Moris Mohamud [id number] Moris Mohamud 09/15/2022 2 [place] [id number] Moris Mohamud [id number] Moris Mohamud Notes Date Note Type Note Provider Name and Address Organization Details Recorded Time 0 text/html Medicare Annual Wellness VisitReported by PatientSocial/Behavioral HistoryFor diet and nutrition, patient reportshealthy diet,discussed vitamin and supplement use, anddiscussed portion control. For fracture risk, patient reportsno history of fractures,no recent explained fracture,no sudden unexplained fractures, andno previous musculoskeletal injuries. For physical activity, patient reportsdiscussed weightbearing activitiesanddiscussed exercise habits.Mental Status:For orientation, patient reportsno disorientation to time,no disorientation to date, andno disorientation to place. For concentration and memory, patient reportsno decreased concentrating ability,no memory lapses or loss, anddoes not forget words. For speech/motor difficulties, patient reportsno speech difficulties,no difficulty expressing formulated concepts,no difficulty with fine manipulative tasks,no difficulty writing/copying,no slowed reaction time, anddoes not knock things over when trying to pick them up.Functional AbilityFor home safety, patient reportsdoes not have hand bars in the bathroom/showerbut reportsno unsafe jose elias hazzards,no unsafe stairs,no unsafe gas appliances,working smoke/co detectors,wears protective head gear for biking/high velocity,use of seatbelts,practicing 'safer sex',no vision or hearing loss while driving,no fire arms, andgood lighting in the home. For hearing, patient reportsno loss of hearing. For vision, patient reportsno vision problems. For activities of daily living, patient reportsable to bathe with limited or no assistance,able to contol urination and bowels,able to dress with limited or no assistance,able to feed self with limited or no assistance,able to get out of chair or bed with limited or no assistance,able to groom with limited or no assistance, andable to toilet with limited or no assistance. For instrumental activities of daily living, patient reportsable to do house work with limited or no assistance,able to grocery shop with limited or no assistance,able to manage medications with limited or no assistance,able to manage money with limited or no assistance,able to prepare meals with limited or no assistance, andable to use the phone with limited or no assistance.Patient Self-Reported Health StatusFor patient report of health status, patient reportsexcellent. Luigi Galvez DO [address] , [place], [address], [facility] [place] 01/14/2020 12:25:08 1 text/html Medicare Annual Wellness VisitReported by PatientSocial/Behavioral HistoryFor diet and nutrition, patient reportshealthy diet,discussed vitamin and supplement use, anddiscussed portion control. For fracture risk, patient reportsno history of fractures,no recent explained fracture,no sudden unexplained fractures, andno previous musculoskeletal injuries. For physical activity, patient reportsexercises on a regular basis,good physical condition,discussed weightbearing activities, anddiscussed exercise habits.Mental Status:For orientation, patient reportsno disorientation to time,no disorientation to date, andno disorientation to place. For concentration and memory, patient reportsno decreased concentrating ability,no memory lapses or loss, anddoes not forget words. For speech/motor difficulties, patient reportsno speech difficulties,no difficulty expressing formulated concepts,no difficulty with fine manipulative tasks,no difficulty writing/copying,no slowed reaction time, anddoes not knock things over when trying to pick them up.Functional AbilityFor hearing, patient reportsno loss of hearing. For vision, patient reportsno vision problems. For activities of daily living, patient reportsable to bathe with limited or no assistance,able to contol urination and bowels,able to dress with limited or no assistance,able to feed self with limited or no assistance,able to get out of chair or bed with limited or no assistance,able to groom with limited or no assistance, andable to toilet with limited or no assistance. For instrumental activities of daily living, patient reportsable to do house work with limited or no assistance,able to grocery shop with limited or no assistance,able to manage medications with limited or no assistance,able to manage money with limited or no assistance,able to prepare meals with limited or no assistance, andable to use the phone with limited or no assistance. For home safety, patient reportsno unsafe jose elias hazzards,no unsafe stairs,no unsafe gas appliances,working smoke/co detectors,wears protective head gear for biking/high velocity,use of seatbelts,practicing 'safer sex',no vision or hearing loss while driving,no fire arms,has hand bars in the bathroom/shower, andgood lighting in the home.Patient Self-Reported Health StatusFor patient report of health status, patient reportsgood. Moriah Norman DO [address] [place], [address], [facility]/[place] 01/02/2021 15:04:03 1 text/html Fractured left wrist again.This time while playing basketball with grandson.Same wrist that he broke several years ago. Moriah Norman DO [address] [place], [address], [facility] 02/28/2021 14:02:07 2 text/html Medicare Annual Wellness VisitReported by PatientSocial/Behavioral HistoryFor diet and nutrition, patient reportshealthy diet,discussed vitamin and supplement use, anddiscussed portion control. For fracture risk, patient reportsno history of fractures,no recent explained fracture,no sudden unexplained fractures, andno previous musculoskeletal injuries. For physical activity, patient reportsexercises on a regular basis,good physical condition,discussed weightbearing activities, anddiscussed exercise habits.Mental Status:For orientation, patient reportsno disorientation to time,no disorientation to date, andno disorientation to place. For concentration and memory, patient reportsno decreased concentrating ability,no memory lapses or loss, anddoes not forget words. For speech/motor difficulties, patient reportsno speech difficulties,no difficulty expressing formulated concepts,no difficulty with fine manipulative tasks,no difficulty writing/copying,no slowed reaction time, anddoes not knock things over when trying to pick them up.Functional AbilityFor hearing, patient reportsno loss of hearing. For vision, patient reportsno vision problems. For activities of daily living, patient reportsable to bathe with limited or no assistance,able to contol urination and bowels,able to dress with limited or no assistance,able to feed self with limited or no assistance,able to get out of chair or bed with limited or no assistance,able to groom with limited or no assistance, andable to toilet with limited or no assistance. For instrumental activities of daily living, patient reportsable to do house work with limited or no assistance,able to grocery shop with limited or no assistance,able to manage medications with limited or no assistance,able to manage money with limited or no assistance,able to prepare meals with limited or no assistance, andable to use the phone with limited or no assistance. For home safety, patient reportsno unsafe jose elias hazzards,no unsafe stairs,no unsafe gas appliances,working smoke/co detectors,wears protective head gear for biking/high velocity,use of seatbelts,practicing 'safer sex',no vision or hearing loss while driving,no fire arms,has hand bars in the bathroom/shower, andgood lighting in the home.Patient Self-Reported Health StatusFor patient report of health status, patient reportsgood. Moriah Norman, [address], [place], [id number], [facility] 01/02/2022 14:09:13 2 text/html Please see the beginning of the review of system where the history of his present complaint is. Moriah Norman, DO [address], [place], [id number], [facility] [place] [facility] [place] 09/08/2022 16:55:26
--- OUTSIDE RECORDS SUMMARY | 2025-07-24 16:13 | XMS_ITS | Patient Health Record ---
Author Organization [facility] Address [address] [place] [address] Care Team Providers Care Missile Inspector Name Role Phone RYAN Chavez Unavailable [phone] Reason For Referral No Information Medications Medication SIG (Take, Route, Frequency, Duration) Notes Start Date End Date Status Nulytely with Flavor Packs 420 GM as directed Orally Split Dose per Physician Instructions; Duration: 1 Day prior to colonoscopy *Reorder from [employer] for eRx and Interaction Alerts* 11/28/2018 Active Plan Of Treatment Pending Test Test Name Order Date Colonoscopy 11/28/2018 Insurance Providers Payer Name Payer Address Payer Phone Subscriber Number Group Number Insured Name Patient Relationship to Insured Coverage Start Date Coverage End Date MEDICARE [address] [place] [address] [id number] ALVIN KIM Self - patient is the insured [facility] [address] [place] [address] [id number] ALVIN KIM Self - patient is the insured
--- OUTSIDE RECORDS SUMMARY | 2025-07-24 16:13 | XMS_ITS | Clinical Summary ---
Author Organization [facility] stem Address [address] [place] [address] Care Team Providers Care Ssis Developer Name Role Phone Moriah Diaz DO Unavailable Unavailable Linda Hernandez DO Primary Care Provider [phone] Moriah Landa CNP Unavailable Unavailabl e Allergies No known active allergies Medications cholecalciferol, vitamin D3, (VITAMIN D3 ORAL) Take by mouth. Active timolol (TIMOPTIC) 0.5 % ophthalmic solution Apply 1 drop to eye 2 (two) times daily. 2 Active simvastatin (ZOCOR) 20 MG tablet Take 1 tablet (20 mg total) by mouth nightly. 90 tablet 3 4 Active sildenafiL (VIAGRA) 100 MG tabletIndications: S/P prostatectomy Take 1 tablet (100 mg total) by mouth daily as needed for erectile dysfunction. 30 tablet 1 5 Active pregabalin (LYRICA) 50 MG capsuleIndications :Lumbosacral radiculopathy,Neur opathic pain Take 1 capsule (50 mg total) by mouth 3 (three) times daily. 90 capsule 2 5 08/13/20 25 Active magnesium oxide (MAGOX) 400 mg (241.3 mg magnesium) tabletIndications: Myofascial pain Take 1 tablet (400 mg total) by mouth daily. 30 tablet 2 5 08/13/20 25 Active tiZANidine (ZANAFLEX) 2 MG tabletIndications: Lumbosacral radiculopathy,Myof ascial pain Take 2 tablets (4 mg total) by mouth every 8 (eight) hours as needed. 180 tablet 2 5 08/13/20 25 Active apixaban (ELIQUIS) 2.5 mg Tab tablet Take 1 tablet (2.5 mg total) by mouth 2 (two) times daily (0900, 1700 only). 180 tablet 4 5 Active enalapril (VASOTEC) 10 MG tablet Take 1 tablet (10 mg total) by mouth daily. 90 tablet 4 5 Active Active Problems Problem Noted Date Diagnosed Date Lumbar spondylosis 09/02/2024 HLD (hyperlipidemia) 09/02/2024 Hx of pulmonary embolus 09/02/2024 Diverticulosis 02/14/2024 Overview (02/14/2024): Last colonoscopy 01/31/24 , recommended repeat in 3 years (01/2027), also 2 polyps biopsied Internal hemorrhoid 02/14/2024 History of DVT (deep vein thrombosis) 11/13/2023 Assessment & Plan (11/13/2023 1:51 PM EST): -- In JulyTPE: multiple bilateral acute pulmonary emboli with CT evidence of right heart strain. Hx of Deep Venous Thrombosis of bilateral peroneal veins Plan: -Continue Eliquis 5 mg twice per day Hypoxia 07/21/2023 Overview (07/21/2023): Patient was found to be hypoxic to 93% on RA on presentation Received 2 L of ocygen via NC Assessment & Plan (07/21/2023 7:23 AM EDT): Patient was found to be hypoxic to 93% on RA on presentation Received 2 L of ocygen via nasal cannula - RV dilation on echocardiogram (RV/LV > 1). RV dilation confirmed by CT (RV/LV > 1). Elevated BNP (> 90 pg/ml). Elevation of Troponin I (> 0.4 ng/ml). Acute deep vein thrombosis (DVT) of both peronea l veins 07/12/2023 Assessment & Plan (07/21/2023 7:23 AM EDT): A lower limb duplex US was ordered and showed: 1.Right: Partially occluding acute deep vein thrombosis of the mid to distal thigh femoral vein. Partially occluding acute deep vein thrombosis of the popliteal vein. Totally occluding acute deep vein thrombosis of the one of the paired peroneal veins. 2.Left: Totally occluding acute deep vein thrombosis of the one of the paired peroneal veins. - PERT team were consulted regarding need for IVC filters and recommended continuing heparin to be transitioned to DOAC with no need for IVC filter at this time. Plan: - Discharge on Eliquis Assessment & Plan (07/15/2023 2:13 PM EDT): A lower limb duplex US was ordered and showed: 1.Right: Partially occluding acute deep vein thrombosis of the mid to distal thigh femoral vein. Partially occluding acute deep vein thrombosis of the popliteal vein. Totally occluding acute deep vein thrombosis of the one of the paired peroneal veins. 2.Left: Totally occluding acute deep vein thrombosis of the one of the paired peroneal veins. - PERT team were consulted regarding need for IVC filters and recommended continuing heparin to be transitioned to DOAC with no need for IVC filter at this time. Plan: - Discharge on Eliquis Assessment & Plan (07/17/2023 9:03 PM EDT): A lower limb duplex US was ordered and showed: 1.Right: Partially occluding acute deep vein thrombosis of the mid to distal thigh femoral vein. Partially occluding acute deep vein thrombosis of the popliteal vein. Totally occluding acute deep vein thrombosis of the one of the paired peroneal veins. 2.Left: Totally occluding acute deep vein thrombosis of the one of the paired peroneal veins. - PERT team were consulted regarding need for IVC filters and recommended continuing heparin to be transitioned to DOAC with no need for IVC filter at this time. Plan: - Discharge on Eliquis Assessment & Plan (07/14/2023 2:43 AM EDT): A lower limb duplex US was ordered and showed: 1.Right: Partially occluding acute deep vein thrombosis of the mid to distal thigh femoral vein. Partially occluding acute deep vein thrombosis of the popliteal vein. Totally occluding acute deep vein thrombosis of the one of the paired peroneal veins. 2.Left: Totally occluding acute deep vein thrombosis of the one of the paired peroneal veins. - PERT team were consulted regarding need for IVC filters and recommended continuing heparin to be transitioned to DOAC with no need for IVC filter at this time. Plan: - Discharge on Eliquis Assessment & Plan (07/14/2023 12:08 AM EDT): A lower limb duplex US was ordered and showed: 1.Right: Partially occluding acute deep vein thrombosis of the mid to distal thigh femoral vein. Partially occluding acute deep vein thrombosis of the popliteal vein. Totally occluding acute deep vein thrombosis of the one of the paired peroneal veins. 2.Left: Totally occluding acute deep vein thrombosis of the one of the paired peroneal veins. - PERT team were consulted regarding need for IVC filters and recommended continuing heparin to be transitioned to DOAC with no need for IVC filter at this time. Plan: - Patient currently on HIH. Patient to be switched to eliquis. Patient and family agree for cost/co-pay of eliquis. Assessment & Plan (07/13/2023 7:07 PM EDT): A lower limb duplex US was ordered and showed: 1.Right: Partially occluding acute deep vein thrombosis of the mid to distal thigh femoral vein. Partially occluding acute deep vein thrombosis of the popliteal vein. Totally occluding acute deep vein thrombosis of the one of the paired peroneal veins. 2.Left: Totally occluding acute deep vein thrombosis of the one of the paired peroneal veins. - PERT team were consulted regarding need for IVC filters and recommended continuing heparin to be transitioned to DOAC with no need for IVC filter at this time. Plan: - Patient currently on HIH. Patient to be switched to eliquis. Patient and family agree for cost/co-pay of eliquis. Assessment & Plan (07/13/2023 3:07 PM EDT): A lower limb duplex US was ordered and showed: 1.Right: Partially occluding acute deep vein thrombosis of the mid to distal thigh femoral vein. Partially occluding acute deep vein thrombosis of the popliteal vein. Totally occluding acute deep vein thrombosis of the one of the paired peroneal veins. 2.Left: Totally occluding acute deep vein thrombosis of the one of the paired peroneal veins. - PERT team were consulted regarding need for IVC filters and recommended continuing heparin to be transitioned to DOAC with no need for IVC filter at this time. Plan: - Patient currently on HIH. Patient to be switched to eliquis. Patient and family agree for cost/co-pay of eliquis. Assessment & Plan (07/12/2023 5:39 PM EDT): A lower limb duplex US was ordered and showed: 1.Right: Partially occluding acute deep vein thrombosis of the mid to distal thigh femoral vein. Partially occluding acute deep vein thrombosis of the popliteal vein. Totally occluding acute deep vein thrombosis of the one of the paired peroneal veins. 2.Left: Totally occluding acute deep vein thrombosis of the one of the paired peroneal veins. - PERT team were consulted regarding need for IVC filters and recommended continuing heparin to be transitioned to DOAC with no need for IVC filter at this time. Plan: - On SDH - Test scripts were sent for NOAC. Assessment & Plan (07/12/2023 12:09 PM EDT): A lower limb duplex US was ordered and showed: 1.Right: Partially occluding acute deep vein thrombosis of the mid to distal thigh femoral vein. Partially occluding acute deep vein thrombosis of the popliteal vein. Totally occluding acute deep vein thrombosis of the one of the paired peroneal veins. 2.Left: Totally occluding acute deep vein thrombosis of the one of the paired peroneal veins. - PERT team were consulted regarding need for IVC filters and pending recommendations. Plan: - On SDH - Test scripts were sent for NOAC. Elevated troponin 07/10/2023 Overview (07/21/2023): -Patient presented with shortness of breath and chest tightness Risk factors: hypertension, hyperlipidemia EKG: Troponin on admission: 209<239<258 Previous echo: none Previous cath: none Risk stratification: HEART score - 7, HAIDER score - 1, ELIDA score - 117 Associated complications: none Echo concerning for significant right heart strain Plan - Likely type 2 nstemi in the setting of acute PE -HIH Beta-ambreen: none ARB or ACEI:none High-intensity statin: crestor 40 mg Cardiology follow-up within 4 weeks Assessment & Plan (07/21/2023 7:12 AM EDT): -Patient presented with shortness of breath and chest tightness - EKG: NSR, tachycardia, no ST segment changes - Troponin on admission: 209<239<258 - Previous echo: none - Previous cath: none - Risk stratification: HEART score - 7, HAIDER score - 1, ELIDA score - 117 - Associated complications: none - Echo concerning for significant right heart strain Plan - type 2 NSTEMI present in the setting of acute PE - Patient currently on HIH. Patient to be switched to eliquis. Patient and family agree for cost/co-pay of eliquis. - High-intensity statin: crestor 40 mg - Cardiology follow-up within 4 weeks Assessment & Plan (07/15/2023 2:13 PM EDT): -Patient presented with shortness of breath and chest tightness - EKG: NSR, tachycardia, no ST segment changes - Troponin on admission: 209<239<258 - Previous echo: none - Previous cath: none - Risk stratification: HEART score - 7, HAIDER score - 1, ELIDA score - 117 - Associated complications: none - Echo concerning for significant right heart strain Plan - Likely type 2 NSTEMI in the setting of acute PE - Patient currently on HIH. Patient to be switched to eliquis. Patient and family agree for cost/co-pay of eliquis. - High-intensity statin: crestor 40 mg - Cardiology follow-up within 4 weeks Assessment & Plan (07/17/2023 9:03 PM EDT): -Patient presented with shortness of breath and chest tightness - EKG: NSR, tachycardia, no ST segment changes - Troponin on admission: 209<239<258 - Previous echo: none - Previous cath: none - Risk stratification: HEART score - 7, HAIDER score - 1, ELIDA score - 117 - Associated complications: none - Echo concerning for significant right heart strain Plan - type 2 NSTEMI present in the setting of acute PE - Patient currently on HIH. Patient to be switched to eliquis. Patient and family agree for cost/co-pay of eliquis. - High-intensity statin: crestor 40 mg - Cardiology follow-up within 4 weeks Assessment & Plan (07/14/2023 2:43 AM EDT): -Patient presented with shortness of breath and chest tightness - EKG: NSR, tachycardia, no ST segment changes - Troponin on admission: 209<239<258 - Previous echo: none - Previous cath: none - Risk stratification: HEART score - 7, HAIDER score - 1, ELIDA score - 117 - Associated complications: none - Echo concerning for significant right heart strain Plan - Likely type 2 NSTEMI in the setting of acute PE - Patient currently on HIH. Patient to be switched to eliquis. Patient and family agree for cost/co-pay of eliquis. - High-intensity statin: crestor 40 mg - Cardiology follow-up within 4 weeks Assessment & Plan (07/14/2023 12:08 AM EDT): -Patient presented with shortness of breath and chest tightness - EKG: NSR, tachycardia, no ST segment changes - Troponin on admission: 209<239<258 - Previous echo: none - Previous cath: none - Risk stratification: HEART score - 7, HAIDER score - 1, ELIDA score - 117 - Associated complications: none - Echo concerning for significant right heart strain Plan - Likely type 2 NSTEMI in the setting of acute PE - Patient currently on HIH. Patient to be switched to eliquis. Patient and family agree for cost/co-pay of eliquis. - High-intensity statin: crestor 40 mg - Cardiology follow-up within 4 weeks Assessment & Plan (07/13/2023 7:07 PM EDT): -Patient presented with shortness of breath and chest tightness - EKG: NSR, tachycardia, no ST segment changes - Troponin on admission: 209<239<258 - Previous echo: none - Previous cath: none - Risk stratification: HEART score - 7, HAIDER score - 1, ELIDA score - 117 - Associated complications: none - Echo concerning for significant right heart strain Plan - Likely type 2 NSTEMI in the setting of acute PE - Patient currently on HIH. Patient to be switched to eliquis. Patient and family agree for cost/co-pay of eliquis. - High-intensity statin: crestor 40 mg - Cardiology follow-up within 4 weeks Assessment & Plan (07/13/2023 3:07 PM EDT): -Patient presented with shortness of breath and chest tightness - EKG: NSR, tachycardia, no ST segment changes - Troponin on admission: 209<239<258 - Previous echo: none - Previous cath: none - Risk stratification: HEART score - 7, HAIDER score - 1, ELIDA score - 117 - Associated complications: none - Echo concerning for significant right heart strain Plan - Likely type 2 NSTEMI in the setting of acute PE - Patient currently on HIH. Patient to be switched to eliquis. Patient and family agree for cost/co-pay of eliquis. - High-intensity statin: crestor 40 mg - Cardiology follow-up within 4 weeks Assessment & Plan (07/12/2023 5:38 PM EDT): -Patient presented with shortness of breath and chest tightness - EKG: NSR, tachycardia, no ST segment changes - Troponin on admission: 209<239<258 - Previous echo: none - Previous cath: none - Risk stratification: HEART score - 7, HAIDER score - 1, ELIDA score - 117 - Associated complications: none - Echo concerning for significant right heart strain Plan - Likely type 2 NSTEMI in the setting of acute PE - HIH - High-intensity statin: crestor 40 mg - Cardiology follow-up within 4 weeks Assessment & Plan (07/12/2023 12:09 PM EDT): -Patient presented with shortness of breath and chest tightness - EKG: NSR, tachycardia, no ST segment changes - Troponin on admission: 209<239<258 - Previous echo: none - Previous cath: none - Risk stratification: HEART score - 7, HAIDER score - 1, ELIDA score - 117 - Associated complications: none - Echo concerning for significant right heart strain Plan - Likely type 2 NSTEMI in the setting of acute PE - HIH - High-intensity statin: crestor 40 mg - Cardiology follow-up within 4 weeks Assessment & Plan (07/11/2023 2:06 PM EDT): -Patient presented with shortness of breath and chest tightness Risk factors: hypertension, hyperlipidemia EKG: Troponin on admission: 209<239<258 Previous echo: none Previous cath: none Risk stratification: HEART score - 7, HAIDER score - 1, ELIDA score - 117 Associated complications: none Echo concerning for significant right heart strain Plan - Likely type 2 nstemi in the setting of acute PE -HIH Beta-ambreen: none ARB or ACEI:none High-intensity statin: crestor 40 mg Cardiology follow-up within 4 weeks Assessment & Plan (07/11/2023 11:51 AM EDT): -Patient presented with shortness of breath and chest tightness Risk factors: hypertension, hyperlipidemia EKG: Troponin on admission: 209<239<258 Previous echo: none Previous cath: none Risk stratification: HEART score - 7, HAIDER score - 1, ELIDA score - 117 Associated complications: none Echo concerning for significant right heart strain Plan - Likely type 2 nstemi in the setting of acute PE -HIH Beta-ambreen: none ARB or ACEI:none High-intensity statin: crestor 40 mg Cardiology follow-up within 4 weeks Assessment & Plan (07/10/2023 11:05 PM EDT): -Patient presented with shortness of breath and chest tightness Risk factors: hypertension, hyperlipidemia EKG: Troponin on admission: 209<239<258 Previous echo: none Previous cath: none Risk stratification: HEART score - 7, HAIDER score - 1, ELIDA score - 117 Associated complications: none Echo concerning for significant right heart strain Plan - Likely type 2 nstemi in the setting of acute PE -HIH Beta-ambreen: none ARB or ACEI:none High-intensity statin: crestor 40 mg Cardiology follow-up within 4 weeks Assessment & Plan (07/10/2023 6:13 PM EDT): -Patient presented with shortness of breath and chest tightness - EKG: NSR, tachycardia, no ST segment changes - Troponin on admission: 209<239<258 - Previous echo: none - Previous cath: none - Risk stratification: HEART score - 7, HAIDER score - 1, ELIDA score - 117 - Associated complications: none - Echo concerning for significant right heart strain Plan - Likely type 2 NSTEMI in the setting of acute PE - HIH - High-intensity statin: crestor 40 mg - Cardiology follow-up within 4 weeks Assessment & Plan (07/10/2023 11:49 AM EDT): -Patient presented with shortness of breath and chest tightness Risk factors: hypertension, hyperlipidemia EKG: Troponin on admission: 209<239<258 Previous echo: none Previous cath: none Risk stratification: HEART score - 7, HAIDER score - 1, ELIDA score - 117 Associated complications: none Echo concerning for significant right heart strain Plan - Likely type 2 nstemi in the setting of acute PE -HIH Beta-ambreen: none ARB or ACEI:none High-intensity statin: crestor 40 mg Cardiology follow-up within 4 weeks Acute pulmonary embolism with acute cor pulmonal e 07/09/2023 Overview (07/21/2023): - CTPE: multiple bilateral acute pulmonary emboli with CT evidence of right heart strain. - PERT team were consulted and recommended HIH, advance therapy with flowtriever thrombectomy in case of clinical deterioration or lack of clinical improvement, STAT TTE Bed rest for initial 24 hours and to call PH physician telecommunication systems designer in case of changes in clinical parameters. - Started on HIH in ED - On 2 L of oxygen Plan: - Stat echo 07/10 shows EF 67% with PAP 49, moderately enlarged RV and reduced global RV systolic function - HIH - maintain therapeutic dose Assessment & Plan (07/21/2023 7:22 AM EDT): - CTPE: multiple bilateral acute pulmonary emboli with CT evidence of right heart strain - High risk submassive PE with risk factors hx cancer (hypercoagulable state) and recent prolonged drive - PERT team were consulted and recommended HIH, advance therapy with flowtriever thrombectomy in case of clinical deterioration or lack of clinical improvement, - On 2 L of oxygen - RV dilation on echocardiogram (RV/LV > 1). RV dilation confirmed by CT (RV/LV > 1). Elevated BNP (> 90 pg/ml). Elevation of Troponin I (> 0.4 ng/ml). -PE with right heart strain with cor pulmonale Plan: - Discharge on Eliquis - Follow up with patient in [facility] clinic in 3 months with 6MWT at that time - Hypercoagulability workup as OPT Assessment & Plan (07/15/2023 2:12 PM EDT): - CTPE: multiple bilateral acute pulmonary emboli with CT evidence of right heart strain - High risk submassive PE with risk factors hx cancer (hypercoagulable state) and recent prolonged drive - PERT team were consulted and recommended HIH, advance therapy with flowtriever thrombectomy in case of clinical deterioration or lack of clinical improvement, - On 2 L of oxygen - RV dilation on echocardiogram (RV/LV > 1). RV dilation confirmed by CT (RV/LV > 1). Elevated BNP (> 90 pg/ml). Elevation of Troponin I (> 0.4 ng/ml). Plan: - Discharge on Eliquis - Follow up with patient in [facility] clinic in 3 months with 6MWT at that time - Hypercoagulability workup as OPT Assessment & Plan (07/17/2023 9:02 PM EDT): - CTPE: multiple bilateral acute pulmonary emboli with CT evidence of right heart strain -Without Cor Pulmonale - High risk submassive PE with risk factors hx cancer (hypercoagulable state) and recent prolonged drive - PERT team were consulted and recommended HIH, advance therapy with flowtriever thrombectomy in case of clinical deterioration or lack of clinical improvement, - On 2 L of oxygen - RV dilation on echocardiogram (RV/LV > 1). RV dilation confirmed by CT (RV/LV > 1). Elevated BNP (> 90 pg/ml). Elevation of Troponin I (> 0.4 ng/ml). Plan: - Discharge on Eliquis - Follow up with patient in [facility] clinic in 3 months with 6MWT at that time - Hypercoagulability workup as OPT Assessment & Plan (07/14/2023 2:42 AM EDT): - CTPE: multiple bilateral acute pulmonary emboli with CT evidence of right heart strain - High risk submassive PE with risk factors hx cancer (hypercoagulable state) and recent prolonged drive - PERT team were consulted and recommended HIH, advance therapy with flowtriever thrombectomy in case of clinical deterioration or lack of clinical improvement, - On 2 L of oxygen - RV dilation on echocardiogram (RV/LV > 1). RV dilation confirmed by CT (RV/LV > 1). Elevated BNP (> 90 pg/ml). Elevation of Troponin I (> 0.4 ng/ml). Plan: - Discharge on Eliquis - Follow up with patient in [facility] clinic in 3 months with 6MWT at that time - Hypercoagulability workup as OPT Assessment & Plan (07/14/2023 12:08 AM EDT): - CTPE: multiple bilateral acute pulmonary emboli with CT evidence of right heart strain. - PERT team were consulted and recommended HIH, advance therapy with flowtriever thrombectomy in case of clinical deterioration or lack of clinical improvement, STAT TTE Bed rest for initial 24 hours and to call PH physician telecommunication systems designer in case of changes in clinical parameters. - Started on HIH in ED - On 2 L of oxygen - Echocardiography concerning for significant right heart strain: 1. Ejection fraction is estimated to be 67% in the range of 65 - 70%. Normal LV ejection fraction. 2. Left ventricular cavity size is normal. LV wall thickness is normal. 3. Normal LV filling pressures. 4. Spectral doppler shows normal pattern of LV diastolic filling. 5. The interventricular septum is flattened in diastole and systole, consistent with right ventricular pressure and volume overload. 6. Moderately enlarged right ventricle and moderately reduced global RV systolic function. 7. Estimated PA pressure is 49 mmHg. Mildly elevated pulmonary artery systolic pressure. 8. Findings consistent with acute pulmonary embolism. - Upon reviewing CTPE previously done, there was concern for significant massive saddle embolism. Plan: - HIH . Switching to eliquis today. -Test scripts sent for NOAC Assessment & Plan (07/13/2023 7:08 PM EDT): - CTPE: multiple bilateral acute pulmonary emboli with CT evidence of right heart strain. - PERT team were consulted and recommended HIH, advance therapy with flowtriever thrombectomy in case of clinical deterioration or lack of clinical improvement, STAT TTE Bed rest for initial 24 hours and to call PH physician telecommunication systems designer in case of changes in clinical parameters. - Started on HIH in ED - On 2 L of oxygen - Echocardiography concerning for significant right heart strain: 1. Ejection fraction is estimated to be 67% in the range of 65 - 70%. Normal LV ejection fraction. 2. Left ventricular cavity size is normal. LV wall thickness is normal. 3. Normal LV filling pressures. 4. Spectral doppler shows normal pattern of LV diastolic filling. 5. The interventricular septum is flattened in diastole and systole, consistent with right ventricular pressure and volume overload. 6. Moderately enlarged right ventricle and moderately reduced global RV systolic function. 7. Estimated PA pressure is 49 mmHg. Mildly elevated pulmonary artery systolic pressure. 8. Findings consistent with acute pulmonary embolism. - Upon reviewing CTPE previously done, there was concern for significant massive saddle embolism. Plan: - HIH . Switching to eliquis today. -Test scripts sent for NOAC Assessment & Plan (07/13/2023 3:07 PM EDT): - CTPE: multiple bilateral acute pulmonary emboli with CT evidence of right heart strain. - PERT team were consulted and recommended HIH, advance therapy with flowtriever thrombectomy in case of clinical deterioration or lack of clinical improvement, STAT TTE Bed rest for initial 24 hours and to call PH physician telecommunication systems designer in case of changes in clinical parameters. - Started on HIH in ED - On 2 L of oxygen - Echocardiography concerning for significant right heart strain: 1. Ejection fraction is estimated to be 67% in the range of 65 - 70%. Normal LV ejection fraction. 2. Left ventricular cavity size is normal. LV wall thickness is normal. 3. Normal LV filling pressures. 4. Spectral doppler shows normal pattern of LV diastolic filling. 5. The interventricular septum is flattened in diastole and systole, consistent with right ventricular pressure and volume overload. 6. Moderately enlarged right ventricle and moderately reduced global RV systolic function. 7. Estimated PA pressure is 49 mmHg. Mildly elevated pulmonary artery systolic pressure. 8. Findings consistent with acute pulmonary embolism. - Upon reviewing CTPE previously done, there was concern for significant massive saddle embolism. Plan: - [facility] -Test scripts sent for NOAC Assessment & Plan (07/14/2023 5:57 PM EDT): - CTPE: multiple bilateral acute pulmonary emboli with CT evidence of right heart strain. - PERT team were consulted and recommended HIH, advance therapy with flowtriever thrombectomy in case of clinical deterioration or lack of clinical improvement, STAT TTE Bed rest for initial 24 hours and to call PH physician telecommunication systems designer in case of changes in clinical parameters. - Started on HIH in ED - On 2 L of oxygen for hypoxia with ARDS - Echocardiography concerning for significant right heart strain: 1. Ejection fraction is estimated to be 67% in the range of 65 - 70%. Normal LV ejection fraction. 2. Left ventricular cavity size is normal. LV wall thickness is normal. 3. Normal LV filling pressures. 4. Spectral doppler shows normal pattern of LV diastolic filling. 5. The interventricular septum is flattened in diastole and systole, consistent with right ventricular pressure and volume overload. 6. Moderately enlarged right ventricle and moderately reduced global RV systolic function. 7. Estimated PA pressure is 49 mmHg. Mildly elevated pulmonary artery systolic pressure. 8. Findings consistent with acute pulmonary embolism. - Upon reviewing CTPE previously done, there was concern for significant massive saddle embolism with cor pulmonale Plan: - [facility] -Test scripts sent for NOAC Assessment & Plan (07/12/2023 12:09 PM EDT): - CTPE: multiple bilateral acute pulmonary emboli with CT evidence of right heart strain. - PERT team were consulted and recommended HIH, advance therapy with flowtriever thrombectomy in case of clinical deterioration or lack of clinical improvement, STAT TTE Bed rest for initial 24 hours and to call PH physician telecommunication systems designer in case of changes in clinical parameters. - Started on HIH in ED - On 2 L of oxygen - Echocardiography concerning for significant right heart strain: 1. Ejection fraction is estimated to be 67% in the range of 65 - 70%. Normal LV ejection fraction. 2. Left ventricular cavity size is normal. LV wall thickness is normal. 3. Normal LV filling pressures. 4. Spectral doppler shows normal pattern of LV diastolic filling. 5. The interventricular septum is flattened in diastole and systole, consistent with right ventricular pressure and volume overload. 6. Moderately enlarged right ventricle and moderately reduced global RV systolic function. 7. Estimated PA pressure is 49 mmHg. Mildly elevated pulmonary artery systolic pressure. 8. Findings consistent with acute pulmonary embolism. - Upon reviewing CTPE previously done, there was concern for significant massive saddle embolism. Plan: - [facility] -Test scripts sent for NOAC Assessment & Plan (07/11/2023 2:06 PM EDT): - CTPE: multiple bilateral acute pulmonary emboli with CT evidence of right heart strain. - PERT team were consulted and recommended HIH, advance therapy with flowtriever thrombectomy in case of clinical deterioration or lack of clinical improvement, STAT TTE Bed rest for initial 24 hours and to call PH physician telecommunication systems designer in case of changes in clinical parameters. - Started on HIH in ED - On 2 L of oxygen Plan: - Stat echo 07/10 shows EF 67% with PAP 49, moderately enlarged RV and reduced global RV systolic function - HIH - maintain therapeutic dose Assessment & Plan (07/11/2023 11:51 AM EDT): - CTPE: multiple bilateral acute pulmonary emboli with CT evidence of right heart strain. - PERT team were consulted and recommended HIH, advance therapy with flowtriever thrombectomy in case of clinical deterioration or lack of clinical improvement, STAT TTE Bed rest for initial 24 hours and to call PH physician telecommunication systems designer in case of changes in clinical parameters. - Started on HIH in ED - On 2 L of oxygen Plan: - Stat echo 07/10 shows EF 67% with PAP 49, moderately enlarged RV and reduced global RV systolic function - HIH - maintain therapeutic dose Assessment & Plan (07/10/2023 11:05 PM EDT): - CTPE: multiple bilateral acute pulmonary emboli with CT evidence of right heart strain. - PERT team were consulted and recommended HIH, advance therapy with flowtriever thrombectomy in case of clinical deterioration or lack of clinical improvement, STAT TTE Bed rest for initial 24 hours and to call PH physician telecommunication systems designer in case of changes in clinical parameters. - Started on HIH in ED - On 2 L of oxygen Plan: - Stat echo 07/10 shows EF 67% with PAP 49, moderately enlarged RV and reduced global RV systolic function - HIH - maintain therapeutic dose Assessment & Plan (07/10/2023 6:10 PM EDT): - CTPE: multiple bilateral acute pulmonary emboli with CT evidence of right heart strain. - PERT team were consulted and recommended HIH, advance therapy with flowtriever thrombectomy in case of clinical deterioration or lack of clinical improvement, STAT TTE Bed rest for initial 24 hours and to call PH physician telecommunication systems designer in case of changes in clinical parameters. - Started on HIH in ED - On 2 L of oxygen - Echocardiography concerning for significant right heart strain: 1. Ejection fraction is estimated to be 67% in the range of 65 - 70%. Normal LV ejection fraction. 2. Left ventricular cavity size is normal. LV wall thickness is normal. 3. Normal LV filling pressures. 4. Spectral doppler shows normal pattern of LV diastolic filling. 5. The interventricular septum is flattened in diastole and systole, consistent with right ventricular pressure and volume overload. 6. Moderately enlarged right ventricle and moderately reduced global RV systolic function. 7. Estimated PA pressure is 49 mmHg. Mildly elevated pulmonary artery systolic pressure. 8. Findings consistent with acute pulmonary embolism. - Upon reviewing CTPE previously done, there was concern for significant massive saddle embolism. Plan: - [facility] - Transfer to CICU for closer monitoring Assessment & Plan (07/10/2023 11:49 AM EDT): - CTPE: multiple bilateral acute pulmonary emboli with CT evidence of right heart strain. - PERT team were consulted and recommended HIH, advance therapy with flowtriever thrombectomy in case of clinical deterioration or lack of clinical improvement, STAT TTE Bed rest for initial 24 hours and to call PH physician telecommunication systems designer in case of changes in clinical parameters. - Started on HIH in ED - On 2 L of oxygen Plan: - Stat echo pending - HIH - pharmacy to dose heparin as it is subtherapeutic Assessment & Plan (07/09/2023 10:33 PM EDT): - CTPE: multiple bilateral acute pulmonary emboli with CT evidence of right heart strain. - PERT team were consulted and recommended HIH, advance therapy with flowtriever thrombectomy in case of clinical deterioration or lack of clinical improvement, STAT TTE Bed rest for initial 24 hours and to call PH physician telecommunication systems designer in case of changes in clinical parameters. - Started on HIH in ED - On 2 L of oxygen Plan: - Stat echo pending - HIH Primary hypertension 07/09/2023 Overview (07/21/2023): Home medications: enalapril, hydrochlorothiazide Plan: Continue home medications Assessment & Plan (07/21/2023 7:11 AM EDT): Home medications: Enalapril 10 , hydrochlorothiazide Plan: DC on Enalapril 10 for blood pressure control and stop vaseretic due to hyponatremia Assessment & Plan (07/15/2023 2:13 PM EDT): Home medications: Enalapril 10 , hydrochlorothiazide Plan: DC on Enalapril 10 for blood pressure control and stop vaseretic due to hyponatremia Assessment & Plan (07/17/2023 9:02 PM EDT): Home medications: Enalapril 10 , hydrochlorothiazide Plan: - Continue home medications Assessment & Plan (07/14/2023 2:42 AM EDT): Home medications: Enalapril 10 , hydrochlorothiazide Plan: - Continue home medications Assessment & Plan (07/14/2023 12:08 AM EDT): Home medications: enalapril, hydrochlorothiazide Plan: Continue home medications Assessment & Plan (07/13/2023 7:07 PM EDT): Home medications: enalapril, hydrochlorothiazide Plan: Continue home medications Assessment & Plan (07/13/2023 3:06 PM EDT): Home medications: enalapril, hydrochlorothiazide Plan: Continue home medications Assessment & Plan (07/12/2023 5:38 PM EDT): Home medications: enalapril, hydrochlorothiazide Plan: Continue home medications Assessment & Plan (07/12/2023 12:06 PM EDT): Home medications: enalapril, hydrochlorothiazide Plan: Continue home medications Assessment & Plan (07/11/2023 2:06 PM EDT): Home medications: enalapril, hydrochlorothiazide Plan: Continue home medications Assessment & Plan (07/11/2023 11:51 AM EDT): Home medications: enalapril, hydrochlorothiazide Plan: Continue home medications Assessment & Plan (07/10/2023 11:05 PM EDT): Home medications: enalapril, hydrochlorothiazide Plan: Continue home medications Assessment & Plan (07/10/2023 6:13 PM EDT): Home medications: enalapril, hydrochlorothiazide Plan: Continue home medications Assessment & Plan (07/10/2023 11:49 AM EDT): Home medications: enalapril, hydrochlorothiazide Plan: Continue home medications Assessment & Plan (07/09/2023 10:40 PM EDT): Home medications: enalapril, hydrochlorothiazide Plan: Continue home medications Cataract 11/25/2022 S/P prostatectomy 11/25/2022 Lumbar radiculopathy 11/25/2022 History of prostate cancer 11/25/2022 Primary hypertension 11/25/2022 Assessment & Plan (11/13/2023 1:45 PM EST): BP (!) 145/83 (BP Location: Left upper arm, Patient Position: Sitting) Pulse 61 --Continue enalapril 10 mg daily Glaucoma 11/25/2022 Assessment & Plan (11/13/2023 1:44 PM EST): -Continue timolol MURALI on CPAP 08/16/2013 Overview (11/13/2023): Home CPAP Assessment & Plan (11/13/2023 1:45 PM EST): -Home CPAP Assessment & Plan (07/21/2023 7:21 AM EDT): On home CPAP machine Plan: - Continue on home CPAP machine Assessment & Plan (07/15/2023 2:11 PM EDT): On home CPAP machine Plan: - Continue on home CPAP machine Assessment & Plan (07/15/2023 8:33 AM EDT): On home CPAP machine Plan: - Continue on home CPAP machine Assessment & Plan (07/14/2023 2:39 AM EDT): On home CPAP machine Plan: - Continue on home CPAP machine Assessment & Plan (07/14/2023 12:08 AM EDT): On home CPAP machine Plan: - Continue on home CPAP machine Assessment & Plan (07/13/2023 7:07 PM EDT): On home CPAP machine Plan: - Continue on home CPAP machine Assessment & Plan (07/13/2023 2:59 PM EDT): On home CPAP machine Plan: - Continue on home CPAP machine Assessment & Plan (07/12/2023 5:38 PM EDT): On home CPAP machine Plan: - Continue on home CPAP machine Assessment & Plan (07/12/2023 12:06 PM EDT): On home CPAP machine Plan: - Continue on home CPAP machine Assessment & Plan (07/11/2023 2:06 PM EDT): Home CPAP Assessment & Plan (07/11/2023 11:51 AM EDT): Home CPAP Assessment & Plan (07/10/2023 11:05 PM EDT): Assessment & Plan (07/10/2023 6:14 PM EDT): Assessment & Plan (07/10/2023 11:49 AM EDT): Assessment & Plan (07/09/2023 10:40 PM EDT): Resolved Problems Problem Noted Date Diagnosed Date Resolved Date Chest pain 11/13/2023 02/14/2024 Assessment & Plan (11/13/2023 3:09 PM EST): -Troponin 4--4. Heart score 4 -electrocardiogram reviewed shows NSR. No new ST changes or TWI -ECHO 07/2023 shows EF 55-60% Plan: -Exercise stress test --nothing by mouth [place] Encounters Date Type Department Care Team Description 07/19/2025 [facility] [address] [place] [address] Nicole Araiza MD 07/11/2025 [facility] [address] [facility] [place] [address] Winston You MD Appointment; Second Request 07/10/2025 9:00 AM EDT RN BP Check Protocol [place] [id number] [place] [address] Itzel Brock MD Stagg, Nicole, RN 07/03/2025 [facility] [address] [place] [address] Joanne Banks, FRANCOIS 07/03/2025 [facility] [address] [place] [address] Linda Hernandez DO Appointment 07/02/2025 [facility] [address] [place] [address] Winston You MD Misc/other 06/28/2025 Telephone [facility] Integrated Patient Coordinators - [facility] [address] [place] [address] Genny Vieyra, RN Patient Outreach 06/26/2025 Telephone [facility] Pain Medicine [facility] [address] [place] [id number] Selam Day, VIPIN 06/26/2025 Documentation [facility] Pain Medicine - [place] [address] [facility] [place] [address] Joanne Banks, FRANCOIS 06/01/2025 Scanned Document [facility] Pain Medicine - [place] [address] [place] [address] Elke Barrett RN 05/30/2025 3:30 PM EDT Office Visit [facility] Endocrinology [facility] [address] [place] [address] Gary Vance MD Low bone mass 05/15/2025 12:16 PM EDT - 05/15/2025 11:59 PM EDT Hospital Encounter [facility] Pain Medicine [place] [id number] [address] Winston You MD Lumbosacral radiculopathy (Primary Dx); Neuropathic pain; Myofascial pain; Anticoagulant long-term use Discharge Disposition: Home or Self Care 05/08/2025 2:20 PM EDT Office Visit [facility] Neurosurgery [facility] [address] [place] [address] Alec Quezada MD Spinal stenosis of lumbar region with neurogenic claudication (Primary Dx); Lumbar radiculopathy; History of prostate cancer; History of DVT (deep vein thrombosis); Low bone mass 04/24/2025 2:00 PM EDT - 04/24/2025 11:59 PM EDT Hospital Encounter [facility] Bone Density - [place] [address] [place] [address] Discharge Disposition: Home or Self Care from Last 3 Months Immunizations Immunization Administration Dates Next Due COVID- 19, Pfizer mRNA, 12 Yr.+ 03/28/2025 Influenza High dose, TIV PF 07/20/2024 Influenza Quad Adjuvanted PF 65+ 023,06/18/2022,07/07/2021,06/26 Influenza Quad PF 06/26/2020 Influenza Quad w/Preservative 07/31/2019 Influenza TIV (Preservative Free) 11/17/2018 Influenza TIV with preservat alexandra, 6 months+ 07/31/2019,11/03/2012 Influenza Unspecified Historical 11/03/2012 Pneumococcal Conjugate 13-Valent 10/06/2018 Pneumococcal Conjugate 20-valent 11/20/2022 Pneumococcal Polysaccharide 12/22/2019 RSV, Bivalent (Abrysvo) 10/05/2023 Tdap 11/20/2022 Zoster Recombinant 11/05/2020,09/04/2020 Family History Medical History Relation Name Comments Colon cancer Mother Melanoma Other Relation Name Status Comments Mother Other Social History Tobacco Use Types Packs/Day Years Used Date Smoking Tobacco: Never Passive Smoke Exposure: Never Smokeless Tobacco: Never Tobacco Cessation:Counseling Given: Not Answered Alcohol Use Standard Drinks/Week Comments Yes 0 (1 standard drink = 0.6 oz pur e alcohol) 10 glasses of wine a week Literacy Answer Date Recorded Do you ever need help reading important papers? No 03/22/2025 Do you have any legal concerns at this time? No 03/22/2025 Healthcare Answer Date Recorded Does your physical or mental health keep you from doing things you need or want to do? (work, school, take care of yourself) No 03/22/2025 Have you needed to see a provider but could not because of cost? No 03/22/2025 General Answer Date Recorded Do you agree to have [facility] and/or one of our community partners contact you for assistance with any of these needs? No 03/22/2025 Housing and Penitentiary Answer Date Recorde d Do you need help with housing? No 0 03/22/2025 Are you homeless or worried that you might be in the future? No 03/22/2025 Safety Answer Date Recorded Are you afraid you might be hurt in your living environment? No 05/15/2025 Family Care Answer Date Recorded Do you need help finding or paying for care for loved ones? For example, child welfare specialist or day care for an older adult. No Education Answer Date Recorded Do you think more education could be helpful for you? No 03/22/2025 Employment/Income Answer Date Recorded Do you need help finding a j ob, better job or steady source of income? No 03/22/2025 Social Connection Answer Date Recorded Do you struggle to get toget her with friends or family on a regular basis? No 03/22/2025 Financial Resource Strain Answer Date R ecorded Do you have trouble paying f or your utility bills (gas, electricity, phone)? No 03/22/2025 Food Insecurity Answer Date Recorded Have you or a family member you live with been unable to get food when it was needed in the last year? No 03/22/2025 Transportation Answer Date Recorded Do you have trouble finding or paying for transp ortation? No 03/22/2025 Sex and Gender Information Value Date Recorded Sex Assigned at Male 07/09/2023 6:03 PM EDT Legal Sex Male 2:00 PM EDT Gender Identity Male 07/09/2023 6:03 PM EDT Sexual Orientation Straight 07/09/2023 6: 03 PM EDT Occupation Industry Job Start Date Job End Date Retired. Not on file Not on file Not on file Last Filed Vital Signs Vital Sign Reading Time Taken Comments Blood Pressure 128/65 07/10/2025 9:52 AM EDT Pulse 89 05/30/2025 3:41 PM EDT Temperature 36.8 C (98.2 F) 05/08/2025 2:09 PM EDT Respiratory Rate 14 05/15/2025 12:37 PM EDT Oxygen Saturation 98% 05/15/2025 12:37 PM EDT Inhaled Oxygen Concentration - - Weight 102.5 kg (226 lb) 05/30/2025 3:41 PM EDT Height 182.9 cm (6') 05/30/2025 3:41 PM EDT Body Mass Index 30.65 05/30/2025 3:41 PM EDT Plan of Treatment Upcoming Encounters Date Type Department Care Team (Late st Contact Info) Description 08/02/2025 12:40 PM EDT Appointment [facility] Pain Medicine - [facility] [address] [facility] [address] [place] [address] Winston You MD [address] [place] [address] 08/14/2025 2:00 PM EDT Office Visit [facility] Neurosurgery - [facility] [address] [place] [address] Nicole Araiza MD [address] [facility] [place] [address] 11/27/2025 10:30 AM EST Office Visit [facility] Gastroenterology - [place] [address] [place] [address] Pauline Ruelas MD [address] [place] [address] Health Maintenance Due Date Last Done Comments Advanced Care Planning 10/18/2024 INFLUENZA VACCINE (#1) 2025 , 06/22/2023, 06/18/2022, Additional history exists Depression Screening 10/18/2025 05/30/2025, 03/28/2025, 11/29/2023 FALL RISK SCREENING 03/22/2026 03/22/2025 SDOH FOOD 03/22/2026 03/22/2025, 11/29/2023 Social Determinants of Health 03/22/2026 03/22/2025 BASIC METABOLIC PROFILE 03/28/2026 03/28/20, 07/11/2024, 11/14/2023, Additional history exists SENIOR WELL VISIT (65+) 03/28/2026 03/28/20, 11/20/2022, 01/01/2022, Additional history exists BMI/BMI PERCENTILE ANNUAL MEASUREMENT 05/30/2026 05/30/2025 Hypertension Control 07/10/2026 07/10/2025 LIPID PANEL 03/28/2030 03/28/2025, 10/18, 07/09/2023, Additional history exists Adult Tdap/Td Vaccine 11/20/2032 11/20/2022 SHINGRIX VACCINE SERIES Completed 11/05/2020, 09/04 Pneumococcal Vaccine Age 50+ Completed 12/2022, 12/22/2019, 10/06/2018 Adult RSV (Respiratory Syncy tial Virus) Vaccine Completed 10/05/2023 HEPATITIS C SCREENING Completed 11/01/2023 Goals Goal Patient Goal Type Associated Problems Recent Progress Patient-Stated? Author Autogenerat ed Goal Care Plan Autogenerated Problem No Batch User, Queue Medical Devices Implanted Type Area Wrapper Stripper Device Identifier Shelf Expiration Date Model / Serial / Lot Implant: Hemostatic; Surgiflo Kit W/ Thrombin 8ml - Sn/A Implanted:Qty: 1 on 09/02/2024 by Alec Quezdaa MD at [facility] N/A: Spine Lumbar [employer] [id number] 10/17/2025 2994 / N/A / [id number] Implant: Hemostatic; Powder Surgifoam 1g - Sn/A Implanted:Qty: 1 on 09/02/2024 by Alec Quezada MD at [facility] N/A: Spine Lumbar [employer] [id number] 08/26/20251977 / N/A / [id number] Implant: Hemostatic; Bonewax 2.5g - Sn/A Implanted:Qty: 1 on 09/02/2024 by Alec Quezada MD at [facility] N/A: Spine Lumbar [employer] [id number] 12/24/2028 [id number] / N/A / [id number] Procedures Procedure Name Priority Date/Time Associated Diagnosis Comments BONE MINERAL DENSITY DXA AXIAL SKELETON (ROUTINE) Routine 04/24/2025 2:26 PM EDT Spinal stenosis of lumbar region with neurogenic claudication Lumbar spondylosis Osteopenia of lumbar spine LIPID PROFILE Routine 03/28/2025 10:04 AM EDT Medicare annual wellness visit, subsequent BASIC METABOLIC PROFILE Routine 03/28/2025 10:04 AM EDT Medicare annual wellness visit, subsequent HEPATITIS C ANTIBODY Routine 11/01/2023 9:22 AM EST Healthcare maintenance from Last 3 Months or Most Recently Relevant to Health Maintenance Results * Bone mineral density DXA axial skeleton (routine) (04/24/2025 2:26 PM EDT) Anatomical Region Laterality Modality Bone Density 04/24/2025 2:26 PM EDT 04/24/2025 2:13 PM EDT Narrative 04/24/2025 3:17 PM EDT Patient Patient Location: [facility] Requesting Physician: DWAYNE Malave Date/Time Exam Description PACS Acc # 04/24/2025 2:26 PM BONE MINERAL DENSITY DXA AXIAL [id number] CLINICAL HISTORY: 79 year old male. Previous spine surgery. other. BONE MINERAL DENSITY (DXA) 04/24/2025 Patient Scan Location: [place] [address] Model: 2-Observe A ([id number]) Prior Study: None. LUMBAR SPINE [L1 - L3] -- Scan mode: F Bone Mineral Density: 1.034g/cm2 T-score: -0.3 Z-score: 0.8 WHO Classification: Within normal limits LEFT HIP [TOTAL] -- Scan mode: F Bone Mineral Density: 0.927g/cm2 T-score: -0.7 Z-score: 0.3 WHO Classification: Within normal limits LEFT HIP [FEMORAL NECK] -- Scan mode: F Bone Mineral Density: 0.696g/cm2 T-score: -1.7 Z-score: -0.2 WHO Classification: Low bone mass IMPRESSION: The overall WHO bone mineral density classification is LOW BONE MASS. 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 Using FRAXIN analysis, the 10 year probability of major osteoporotic fracture is 7.8%. The 10 year probability of hip fracture is 2.8%. Report reviewed and signed: ROSALIND MONTENEGRO M.D. Date signed: 04/24/2025 3:17 PM Procedure Note Rosalind Montenegro MD - 04/24/2025 Patient Patient Location: [facility] Requesting Physician: DWAYNE Malave Date/Time Exam Description PACS Acc # 04/24/2025 2:26 PM BONE MINERAL DENSITY DXA AXIAL [id number] CLINICAL HISTORY: 79 year old male. Previous spine surgery. other. BONE MINERAL DENSITY (DXA) 04/24/2025 Patient Scan Location: [place] [address] Model: Horizon A ([id number]) Prior Study: None. LUMBAR SPINE [L1 - L3] -- Scan mode: F Bone Mineral Density: 1.034g/cm2 T-score: -0.3 Z-score: 0.8 WHO Classification: Within normal limits LEFT HIP [TOTAL] -- Scan mode: F Bone Mineral Density: 0.927g/cm2 T-score: -0.7 Z-score: 0.3 WHO Classification: Within normal limits LEFT HIP [FEMORAL NECK] -- Scan mode: F Bone Mineral Density: 0.696g/cm2 T-score: -1.7 Z-score: -0.2 WHO Classification: Low bone mass IMPRESSION: The overall WHO bone mineral density classification is LOW BONE MASS. 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 Using FRAXIN analysis, the 10 year probability of major osteoporotic fracture is 7.8%. The 10 year probability of hip fracture is 2.8%. Report reviewed and signed: ROSALIND MONTENEGRO M.D. Date signed: 04/24/2025 3:17 PM Alec Quezada MD IMG DXA ORDERABLES Final Re sult * Lipid Profile (03/28/2025 10:04 AM EDT) Cholesterol 166 <200 mg/dL 03/28/2025 1:57 PM EDT [facility] Triglyceride 165 <200 mg/dL 03/28/2025 1:57 PM EDT [facility] HDL Cholesterol 52 >40 mg/dL 5 1:57 PM EDT [facility] LDL Cholesterol 86 <130 mg/dL 5 1:57 PM EDT [facility] VLDL 33 03/28/2025 1:57 PM EDT [facility] Non HDL Cholesterol 114 03/28/2025 1:57 PM EDT [facility] Comment: (NOTE) Desirable: <130 mg/dL Above Desirable: 130-159 mg/dL Borderline High: 160-189 mg/dL High: 190-219 mg/dL Very High: >=220 mg/dL Serum BLOOD SPECIMEN / Unknown 03/28/2025 10:04 AM EDT 03/28/2025 11:34 AM EDT Betsy Canales DO LAB BLOOD ORDERABLES Final R esult [facility] [address] [place] [address] * Basic Metabolic Profile (03/28/2025 10:04 AM EDT) Sodium 138 135 - 145 mmol/L 03/28/2025 1:57 PM EDT [facility] Potassium 4.2 3.5 - 5.0 mmol/L 03/28/2025 1:57 PM EDT [facility] Chloride 104 98 - 111 mmol/L 03/28/2025 1:57 PM EDT [facility] Carbon Dioxide 24 21 - 35 mmol/L 03/28/2025 1:57 PM EDT [facility] Anion Gap 10 3 - 13 03/28/2025 1:57 PM EDT [facility] Blood Urea Nitrogen 18 10 - 25 mg/dL 03/28/2025 1:57 PM EDT [facility] Creatinine 1.00 <1.28 mg/dL 03/28/2025 1:57 PM EDT [facility] Comment:IDMS Standardized. Glucose 130 60 - 140 mg/dL 03/28/2025 1:57 PM EDT [facility] Calcium 9.8 8.2 - 10.2 mg/dL 03/28/2025 1:57 PM [facility] Estimated Glomerular Filtration Rate (eGFR) 77 >60 mL/min/1.7 3m2 03/28/2025 1:57 PM T [facility] Comment: (NOTE) In alignment with the National [employer] and [place], the estimated glomerular filtration rate (eGFR) has been refit. This equation like the former CKD-EPI eGFR equation is based on age, sex, and plasma/serum creatinine. The refit equation no longer has a race-based variable that prior equations used. The refit equation is now calculated as the CKD-EPI 2020 equation and recommended for use in adult patients. The eGFR calculation may not be reliable in metabolically unstable patients; e.g., morbid obesity, extreme muscle mass, and malnutrition. Reference: MERRITT September 2021, 32 [phone]) [id number]. For more information, please visit the [facility] Department's electronic Laboratory User's Guide, search for GFR and see the links to the [employer] GFR calculators at the bottom. Serum BLOOD SPECIMEN / Unknown 03/28/2025 10:04 AM EDT 03/28/2025 11:34 AM EDT Betsy Canales DO LAB BLOOD ORDERABLES Final R esult Performing Organization Address [facility]/ZIP Co de Phone Number [facility] [address] [place] [address] * Hepatitis C Antibody (11/01/2023 9:22 AM EST) Hepatitis C Antibody Negative Negative 11/01/2023 2:59 PM EST [facility] Comment:High levels of Bioti n can interfere with this test. See Laboratory User's Guide for more information. Serum or Plasma BLOOD SPECIMEN / Unknown 11/01/2023 9:22 AM EST 11/01/2023 9:30 AM EST us Linda Sergofarideh DO LAB BLOOD ORDERABLES Final Re sult Performing Organization Address [facility] [[email or web address]] Co de Phone Number [facility] [address] [place] [address] from Last 3 Months or Most Recently Relevant to Health Maintenance Additional Health Concerns Active Problems Noted Date Diagnosed Date Autogenerated Problem 06/29/2025 Insurance MEDICARE [facility] Advance Directives * Full Code (Latest Code Status on File) Date Activated Date Inactivated Comments 09/02/2024 9:51 AM 09/02/2024 6:43 PM * Full Code Date Activated Date Inactivated Comments 11/13/2023 1:37 PM 11/14/2023 2:41 PM * Full Code Date Activated Date Inactivated Comments 07/09/2023 8:20 PM 07/15/2023 4:38 PM Care Teams Ssis Developer Relationship Specialty Start Date End Date Linda Hernandez DO [address] [place] [address] PCP - General Family Medicine 02/23/23 Moriah Landa CNP PCP - [place] [facility] 10/18/24 Moriah Diaz DO Internal Medicine 06/09/17
--- OUTSIDE RECORDS SUMMARY | 2025-07-24 16:13 | XMS_ITS | Data Portability ---
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 He understood the risks including but not limited to bleeding infection Encouraged him to take lots of breaks on his travels to get up and move around to reduce risk for DVT and pulmonary embolism He he will have to come off anticoagulants if he is going to have the epidural. Will discuss this or he will follow-up with the interventionalists in January Continue walking Spent 20 minutes evaluate patient and coordinating care Not available 12/07/2023 11:48:18 02/16/2024 02/16/2024 Patient tolerate d injection. Patient will monitor site for signs of infection and report any adverse side effects. [email or web address] Not available 02/16/2024 10:00:55 02/28/2024 02/28/2024 Patient noted in initial benefit from his causal epidural steroid injection. Returned to [facility] without sequela. You did not traveling in car over 18 hours in a weeks following his procedure and does have some ongoing pain. We will schedule a repeat injection. Caudal, however, his stenosis on his MRI fairly severe. Not available 03/03/2024 10:21:37 03/10/2024 03/10/2024 Patient tolerate d injection. Patient will monitor site for signs of infection and report any adverse side effects. [email or web address] Not available 03/10/2024 10:28:35 04/06/2024 04/06/2024 Lumbar radiculop athy with severe's foraminal stenosis Sacroiliac pain At his request I injected 1 cc of Kenalog and 2 cc 1% lidocaine in the right sacroiliac joint under sterile techniques. He understood the risk including but not limited to bleeding infection Will refer him to neurosurgery. He does not really want to pursue surgery but he will at least discussed the options. Spent 20 minutes evaluate patient reviewing results of MRI again with patient going over all the different options and coordinating care Not available 04/06/2024 19:16:02 Plan of Treatment Reminders Order Date Submit Date Provider Last Modified By Organization Details Last Modified Time Details Appointments None recorded. Lab None recorded. Referral neurologica l surgeon referral 2023 024 [email or web address] Not available 4 09:01:01 pain management referral 2023 024 [email or web address] Not available 4 09:43:47 Procedures None recorded. Surgeries None recorded. Imaging None recorded. Medication Orders None recorded. Patient TargetsNo targets recorded. Patient Instructions Encounter Date Encounter Id Patient Instructions Last Modified By Organization Details Last Modified Time 02/16/2024 [id number] lumbar spinal stenosis: care instructions Not available 02/20/2024 21:09:39 MRI reviewed severe right lateral stenosis L45 L5S1 moderate lateral stenosis L45 L5S1 concurrent facet arthropathy risks, benefits and alternatives discussed with patient at length, questions answered. options discussed SHAE per below return to [facility] discussed with pt and family CAUDAL EPIDURAL STEROID INJECTION PROCEDURE: : 1. Caudal epidural steroid injection with contrast. 2. Utilization of fluoroscopy for confirmation of needle placement. SEDATION: None PREPROCEDURE PREPARATION: The risks, benefits, alternatives of the injection were discussed with the patient today. Risks including bleeding, infection, headache, worsening pain, anaphylaxis, nerve damage, disability, , paralysis and elevated blood glucose levels were discussed with the patient and questions were answered. The patient denied prior allergic or adverse reactions to any substances used in the procedure or similar substances. The patient denied any recent signs of infection, history of clotting abnormality, or any use of coagulation altering medications including [id number] medications. Signed, witnessed, and informed consent was obtained and placed in the chart. PROCEDURE DETAILS: . The patient was placed in the prone position. Fluoroscopy was used to identify the appropriate anatomy. The skin was prepped and draped in a sterile fashion and sterile technique was maintained throughout the procedure. The sacral hiatus was identified by fluoroscopy and palpation, and overlying skin was anesthetized with 1% lidocaine plain. A 22-gauge needle was used to penetrate the sacrococcygeal ligament. After penetration the needle was advanced posteriorly and cephaled less than 1.5 cm. Correct needle placement was confirmed by both AP and lateral fluoroscopy. After negative aspiration, administration of 0.5 mL of the contrast (previously drawn from a single use 10ml vial of omnipaque 180mg/ml) revealed correct needle placement within the sacral canal, as confirmed once again by biplanar fluoroscopy. There was neither intravascular nor intradural uptake. An additional 2 mL of contrast was administered, revealing additional appropriate epidural flow. After negative aspiration, 9 mL of medication was slowly administered followed by gentle needle removal. The medication consisted of 4 mL of 0.1% preservative free lidocaine , 1 ml of 10mg/ml dexamethasone and 4 mL of preservative-free normal saline. The patient tolerated the procedure well and without complications. There were no neurological deficits, headache or increased pain immediately after the procedure. POSTPROCEDURE EVALUATION: The procedure was performed without complications and the patient tolerated the procedure well. The patient was observed after the injection and was without adverse effect. The patient was able to ambulate in the recovery area where the patient was reexamined 20 minutes later. There was no evidence of new weakness or motor deficits. There was some relief of the presenting pain symptoms. The patient was instructed with the expected timing of the effects of the medications used. The patient was advised as to adverse effects, signs and symptoms that would necessitate emergent medical evaluation for complications and treatment. The patient voiced an understanding and was provided discharge paperwork. After a 30-minute recovery period, during which no complications were noted, the patient was discharged home. COMPLICATIONS: No immediate complications DISPOSITION: Discharge patient to home today. ACTIVITY: Patient may resume normal activity level in 1 day. FOLLOW-UP: 2 weeks Not available 02/20/2024 21:09:24 02/28/2024 [id number] Patient noted in initial benefit from his causal epidural steroid injection. Returned to [facility] without sequela. You did not traveling in car over 18 hours in a weeks following his procedure and does have some ongoing pain. We will schedule a repeat injection. Caudal, however, his stenosis on his MRI fairly severe. prior PT fair to guarded prognosis will need eliquis window Discussed history,symtpoms, presentation and options of procedure. Medically appropriate to attempt to maximize function, decrease symptoms and minimize reliance on pharmacologic management. televisit [place] [id number] Not available 03/03/2024 10:22:37 03/10/2024 [id number] lumbar spinal stenosis: care instructions [place] [email or web address] Not available 03/29/2024 16:54:02 2nd SHAE today traveled 18 hours [address] after last injection mitigating benefit MRI reviewed with fairly severe lateral recess stenosis right > left with disc bulges at L45 , L5S1 guarded prognosis for conservative management will return to [facility] in 6 hours, then per prior rx AM/PM patient and family informed CAUDAL EPIDURAL STEROID INJECTION PROCEDURE: : 1. Caudal epidural steroid injection with contrast. 2. Utilization of fluoroscopy for confirmation of needle placement. SEDATION: None PREPROCEDURE PREPARATION: The risks, benefits, alternatives of the injection were discussed with the patient today. Risks including bleeding, infection, headache, worsening pain, anaphylaxis, nerve damage, disability, , paralysis and elevated blood glucose levels were discussed with the patient and questions were answered. The patient denied prior allergic or adverse reactions to any substances used in the procedure or similar substances. The patient denied any recent signs of infection, history of clotting abnormality, or any use of coagulation altering medications including ujmy-avw-lovtyby medications. Signed, witnessed, and informed consent was obtained and placed in the chart. PROCEDURE DETAILS: . The patient was placed in the prone position. Fluoroscopy was used to identify the appropriate anatomy. The skin was prepped and draped in a sterile fashion and sterile technique was maintained throughout the procedure. The sacral hiatus was identified by fluoroscopy and palpation, and overlying skin was anesthetized with 1% lidocaine plain. A 22-gauge needle was used to penetrate the sacrococcygeal ligament. After penetration the needle was advanced posteriorly and cephaled less than 1.5 cm. Correct needle placement was confirmed by both AP and lateral fluoroscopy. After negative aspiration, administration of 0.5 mL of the contrast (previously drawn from a single use 10ml vial of omnipaque 180mg/ml) revealed correct needle placement within the sacral canal, as confirmed once again by biplanar fluoroscopy. There was neither intravascular nor intradural uptake. An additional 2 mL of contrast was administered, revealing additional appropriate epidural flow. After negative aspiration, 9 mL of medication was slowly administered followed by gentle needle removal. The medication consisted of 4 mL of 0.1% preservative free lidocaine , 1 ml of 10mg/ml dexamethasone and 4 mL of preservative-free normal saline. The patient tolerated the procedure well and without complications. There were no neurological deficits, headache or increased pain immediately after the procedure. POSTPROCEDURE EVALUATION: The procedure was performed without complications and the patient tolerated the procedure well. The patient was observed after the injection and was without adverse effect. The patient was able to ambulate in the recovery area where the patient was reexamined 20 minutes later. There was no evidence of new weakness or motor deficits. There was some relief of the presenting pain symptoms. The patient was instructed with the expected timing of the effects of the medications used. The patient was advised as to adverse effects, signs and symptoms that would necessitate emergent medical evaluation for complications and treatment. The patient voiced an understanding and was provided discharge paperwork. After a 30-minute recovery period, during which no complications were noted, the patient was discharged home. COMPLICATIONS: No immediate complications DISPOSITION: Discharge patient to home today. ACTIVITY: Patient may resume normal activity level in 1 day. FOLLOW-UP: 2 weeks [email or web address] Not available 03/10/2024 10:57:15 Reason for Referral Pain Management Referral for Lumbar radiculopathy Referring Physician: Simone Yap, [facility] Encounter Date: 12/07/2023 Neurological Surgeon Referra l for Lumbar radiculopathy Referring Physician: Simone Yap, [facility] Encounter Date: 04/06/2024 Results Created Date Observation Date Name Description Value Unit Range Abnormal Flag Note LastModifiedBy Organization Detail LastModifiedTime 06/28/2010/16/2023 MRI, lumba r spine , w/o contr ast No observ ation record ed. BARCODE Not Available 2023 10:49:45 Result Notes None recorded. Problems No Known Problems Procedures Surgical History Date Name Laterality Status Provider Name and Address Organization Details Recorded Time 09/04/20 *Fall Risk Assessment completed Serena Martinez [facility] 09/04/2020 14:15:33 07/26/20 20 *Fall Risk Assessment completed [facility] 07/26/2020 13:48:22 Hernia Repair completed [facility] 07/26/2020 13:47:13 Cholecystectomy completed [facility] 07/26/2020 13:47:20 prostatectomy completed [facility] 04/29/2023 09:39:41 Imaging Results None recorded. Procedure Notes None recorded. Medical Equipment None Reported. Allergies No known drug allergies Medications Name Sig Start Date Stop Date Status Note LastModified by Organization Details LastModified Time methocarbam ol 500 mg tablet active Not Available Not Available Not Available enalapril maleate 10 mg tablet TAKE 1 TABLET BY MOUTH ONCE DAILY active Not Available Not Available No t Available enalapril maleate 5 mg tablet take 1 tablet by mouth once daily 04/07 completed Not Available Not Available Not Available tramadol 50 mg tablet TAKE 1 TABLET BY MOUTH TWICE DAILY active Not Available Not Available No t Available sildenafil 100 mg tablet take 1 tablet by mouth once daily 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 active Not Available Not Available No t Available enalapril 10 mg-hydrochl orothiazide 25 mg tablet take 2 tablets by mouth once daily active Not Available Not Available No t Available simvastatin 20 mg tablet TAKE 1 TABLET BY MOUTH NIGHTLY active Not Available Not Available No t Available fluorometho lone 0.1 % eye drops,suspe nsion instill 1 drop into left eye four times a day 04/07 completed Not Available Not Available Not Available brimonidine 0.2 % eye drops instill 1 drop into both eyes twice a day active Not Available Not Available No t Available omeprazole 20 mg capsule,del ayed release take 1 capsule by mouth every morning ON AN EMPTY STOMACH active Not Available Not Available No t Available mupirocin 2 % topical ointment apply to affected area ON THE SCALP twice a day 04/07 completed Not Available Not Available Not Available timolol maleate 0.5 % eye drops INSTILL 1 DROP INTO EACH EYE TWICE DAILY active Not Available Not Available No t Available Alphagan P 0.1 % eye drops instill 1 drop INTO AFFECTED EYE(S) every 8 hours 04/07 completed Not Available Not Available Not Available Eliquis 5 mg tablet take 1 tablet by mouth twice a day 02/15 completed Not Available Not Available Not Available Eliquis 2.5 mg tablet take 1 tablet by mouth twice a day active Not Available Not Available No t Available Shingrix (PF) 50 mcg/0.5 mL intramuscul ar suspension, kit inject 0.5 millilite r intramusc ularly 12/02 completed Not Available Not Available Not Available Vitals Date Recorded Body height Pain severity - 0-10 verbal numeric rating [Score] - Reported Body mass index (BMI) Body weight Heart rate Oxygen saturation Oxygen saturation in Arterial blood by Pulse oximetry Systolic And Diastolic Provider Name and Address Organization Details Last Updated DateTime 4 185.42 cm 3 28.4 kg/m2 26826.3 6 g 79 /min 96 % 96 % 146/74 mm[Hg] Helena Gabriel [facility] 4 10:33:36 Date Recorded Pain severity - 0-10 verbal numeric rating [Score] - Reported Oxygen saturation Oxygen saturation in Arterial blood by Pulse oximetry Heart rate Systolic And Diastolic Provider Name and Address Organization Details Last Updated DateTime 4 2 95 % 95 % 77 /min 126/72 mm[Hg] manuel Yap [facility] 4 10:58:29 Date Recorded Body height Body mass index (BMI) Body weight Pain severity - 0-10 verbal numeric rating [Score] - Reported Heart rate Oxygen saturation Oxygen saturation in Arterial blood by Pulse oximetry Systolic And Diastolic Provider Name and Address Organization Details Last Updated DateTime 4 185.42 cm 28.4 kg/m2 66280.3 6 g 4 76 /min 95 % 95 % 132/76 mm[Hg] Mary Grace Taylor [facility] 4 10:14:48 Date Recorded Body height Oxygen saturation Oxygen saturation in Arterial blood by Pulse oximetry Heart rate Pain severity - 0-10 verbal numeric rating [Score] - Reported Oxygen saturation Oxygen saturation in Arterial blood by Pulse oximetry Heart rate Pain severity - 0-10 verbal numeric rating [Score] - Reported Systolic And Diastolic Systolic And Diastolic Provider Name and Address Organization Details Last Updated DateTime 4 185.42 cm 95 % 95 % 67 /min 4 98 % 98 % 68 /min 4 138/78 mm[Hg] 136/82 mm[Hg] manuel Yap [facility] 4 10:57:16 Date Recorded Body height Pain severity - 0-10 verbal numeric rating [Score] - Reported Body mass index (BMI) Body weight Heart rate Oxygen saturation Oxygen saturation in Arterial blood by Pulse oximetry Systolic And Diastolic Provider Name and Address Organization Details Last Updated DateTime 4 185.42 cm 5 28.4 kg/m2 02666.3 6 g 72 /min 96 % 96 % 140/70 mm[Hg] Deandra Rodriguez [facility] 4 14:36:41 Social History Question Answer Notes LastModified by Organizat ion Details LastModified Time Tobacco Smoking Status Never Smoker Magda Ware [facility] 07/26/2020 13:39:48 Do You Have An Advance Directive? Yes Information not available 07/26/2020 Auto Related Injury? No [email or web address] Information not available 07/26/2020 Are You Blind Or Do You Have Difficulty Seeing? No Information not available 07/26/2020 Are You Deaf Or Do You Have Serious Difficulty Hearing? No [email or web address] Information not available 07/26/2020 What Type Of Diet Are You Following? REGULAR [email or web address] Information not available 08/01/2021 Which Of Your Hands Is Dominant? Right [email or web address] Information not available 08/01/2021 Live Alone Or With Others? With Others [email or web address] Information not available 07/26/2020 What Was The Date Of Your Most Recent Tobacco Screening? 04/06/2024 [email or web address] Information not available 04/06/2024 Seat Belts Used Routinely Yes [email or web address] Information not available 07/26/2020 How Much Tobacco Do You Smoke? No [email or web address] Information not available 07/26/2020 How Many Years Have You Smoked Tobacco? 0 [email or web address] Information not available 07/26/2020 Do You Have Difficulty Walking Or Climbing Stairs? No [email or web address] Information not available 07/26/2020 Work Related Injury? No [email or web address] Information not available 07/26/2020 Sex: Male Functional Status Question Answer Note LastModified by Organizat ion Details LastModified Time Do you use any illicit or recreational drugs? No Information not available 08/01/2021 Do you or have you ever used any other forms of tobacco or nicotine? No [email or web address] Information not available 08/01/2021 What is your level of alcohol consumption? Moderate Wine 4-5 days a week [email or web address] Information not available 07/26/2020 Do you or have you ever used smokeless tobacco? Never used smokeless tobacco Information not available 07/26/2020 Do you have difficulty doing errands alone? No Information not available 07/26/2020 Are you able to care for yourself independently? Yes [email or web address] Information not available 07/26/2020 Do you have difficulty dressing, bathing, grooming, or toileting? No [email or web address] Information not available 07/26/2020 Do you or have you ever used e-cigarettes or vape? Never used electronic cigarettes [email or web address] Information not available 07/26/2020 What is your exercise level? Occasional [email or web address] Information not available 08/01/2021 Mental Status Question Answer Note LastModified by Organization D etails LastModified Time Do you have difficulty concentrating, remembering or making decisions? No [email or web address] Information no t available 07/26/2020 Family History Relationship Description Onset Age of this Age Resolved Age Notes LastModified by Organization Details LastModified Time Mother Malignant neoplasm of colon Not available 07/26 13:46:10 Unspecified Relation Malignant melanoma [email or web address] Not available 07/26 13:46:18 Medical History Condition Response Other Y Cancer Y Joint Pain Y Hyperlipidemia Y Hypertension Y Past Encounters Encounter ID Performer Location Encounter Start Date Encounter Closed Date Diagnosis/Indication Diagnosis SNOMED-CT Code Diagnosis ICD10 Code Diagnosis IMO Codes Diagnosis Note [id number] MD [place] Turk [address] [place] [address] 07/26/2020 13:25:45 07/26/2020 14:06:22 Lumbar radiculopathy 801365340 M54.16 [id number] MD [place] Knight [address] [place] [address] 08/01/2020 13:24:03 08/01/2020 14:25:58 [id number] MD [place] [address] [place] [address] 09/04/2020 14:11:51 09/04/2020 14:47:19 Lumbar radiculopathy 722592759 M54.16 [id number] MD [place] [address] [place] [address] 11/08/2020 13:08:33 11/08/2020 13:48:38 Lumbar radiculopathy 078734437 M54.16 [id number] MD [place] [address] [place] [address] 12/02/2020 11:11:49 12/02/2020 11:43:11 [id number] MD [place] [address] [place] [address] 02/07/2021 13:21:47 02/07/2021 13:50:05 [id number] MD [place] Turk [address] [place] [address] 08/01/2021 10:24:50 08/01/2021 10:52:19 Lumbar radiculopathy 995178615 M54.16 [id number] MD [place] Turk [address] [place] [address] 10/03/2021 10:04:18 10/03/2021 10:27:30 [id number] MD [place] Turk [address] [place] [address] 04/07/2022 11:14:06 04/07/2022 11:48:34 Low back pain 091410381 M54.50 Body mass index 25-29 - overweight 123566881 Z68.27 [id number] MD [place] Turk [address] [place] [address] 04/29/2023 14:11:06 04/29/2023 15:06:33 Lumbar radiculopathy 334349345 M54.16 Body mass index 25-29 - overweight 306920460 Z68.27 [id number] MD [place] Turk [address] [place] [address] 09/07/2023 10:09:27 09/07/2023 10:39:07 Low back pain 556849023 M54.50 [id number] MD [place] [address] [place] [address] 12/07/2023 10:23:28 12/07/2023 10:54:38 Lumbar radiculopathy 995281129 M54.16 [id number] MD [place] [address] [place] [address] 02/16/2024 10:00:22 02/16/2024 11:02:43 Spinal stenosis of lumbar region 51273038 M48.062 [id number] MD [place] L[place] [address] [place] [address] 03/03/2024 10:20:27 03/08/2024 22:05:42 [id number] MD [place] L[place] [address] [place] [address] 03/10/2024 10:27:58 03/10/2024 11:04:55 Spinal stenosis of lumbar region 07887668 M48.062 [id number] MD [place] Turk [address] [place] [address] 04/06/2024 14:22:35 04/06/2024 15:12:35 Lumbar radiculopathy 694382783 M54.16 Health Concerns Section Related Observation LastModified by Organization Detai ls LastModified Time None Recorded Concern Status LastModified by Organization Details LastModified Time None Recorded Advance Directives Directive Y: Payers Insurance Date Sequence Insurance Name Policy Number Policy Gonsalves Covered Member ID Gonsalves Member ID Guarantor Name 04/06/2024 2 [place] [id number] Moris Poornima [place] [id number] Moris Moh[place]ud 04/05/2024 1 [place] Moris Poornima [place] [id number] Moris [place] Notes Date Note Type Note Provider Name and Address Organization Details Recorded Time 12/07/2023 text/html Patient seen in follow-up. Chief complaint low back pain. Notes that a little bit more on the right. Pretty much across the back. Occasional radiating pain but not very often. He did have the MRI showing significant foraminal stenosis at L5 on the right. He does see injections I given him in the past and sacroiliac joint help. He does walk daily. 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 Eventually he would like to go for an epidural. He would have to be off anticoagulation. He will be going to [place] in a roundabout way stopping and making several visits to friends and family on the way. [place] [address] [facility] [place] [place], [address], [facility] 12/07/2023 11:48:39 02/16/2024 text/html Patient presents for an injection [place] INSERT [place] [address] [facility] [place] [place], [address], [facility] 02/20/2024 21:10:12 02/28/2024 text/html Patient pleased with inj50% reduction in pain on averageinitially very goodbetter able to perform ADLs and more mobileno new focal neuro deficits, fevers, chillsno new weaknessprior radiations of pain decreasedstable on medicationsinterested in possible repeat injectionsas he traveled in a car 18 hours [place] [id number] [facility] [place] [place], [address], [facility] 03/03/2024 10:22:41 03/10/2024 text/html Patient presents for an injection [place] INSERT TEXT [place] [id number] [facility] [place] [place], [address], [facility] 03/29/2024 16:54:05 04/06/2024 text/html Patient comes in today in follow-up. Chief complaint lower back pain radiating into the leg. He has significant foraminal stenosis. He is able to do the treadmill without difficulty and walks a fairly long distance. However if he walks on hard sidewalk/concrete he gets more pain. He has a history of blood clots. He is on Eliquis. He did have an epidural injection. He did not get any benefit. He has not had any benefit from physical therapy. He does note maybe a little relief from tramadol but has been afraid to take it. He has a trip coming up to [place] as well as several other trips including to the [place] where he [place] be driving. He is notes the cortisone injections that have given him in the past and the only thing that [place] [id number], [place], [address], [facility] 04/06/2024 19:16:24
--- NOTE | 2025-07-24 16:43 | ECG_ITS ---
Test Date: 2025-07-24 16:51:58 Measurements Intervals [place] Rate: 66 P: 21 [place]: 199 QRS: -3 QRSD: 86 T: 30 QT: 374 QTc: 395 Interpretive Statements SINUS RHYTHM EARLY PRECORDIAL R/S TRANSITION INFERIOR INFARCT, AGE INDETERMINATE BASELINE ARTIFACT- I, III, AVR, AVL, AVF ABNORMAL ECG Compared to ECG 07/24/2025 13:59:47 No significant changes Electronically Signed On 07-25-2025 08:20:49 CDT by Chris Pham D.O.
[2025-07-24] MEDS: Please add drug allergy info to patient profile. 1 EACH XX (16:49)
[2025-07-24 17:27] LABS: Troponin I < 0.012 ng/mL (0.000-0.034)
--- NOTE | 2025-07-24 17:30 | ADMGEN ---
This patient, Moris Mohamud, was admitted to Medical Room 348-01. Patient/family oriented to hospital policies and general routines including ID bracelet, bed and alarms, visiting hours, pain management, procedures, bathroom and other care routines, personal items, smoking policy, room service/diet, and visiting hours. Information on how to activate the Rapid Response Team has been discussed. Patient/Family are encouraged to report perceived risks to care and to ask questions if they do not understand what they are told or what they should do.
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
[2025-07-24 20:17] LABS: Troponin I < 0.012 ng/mL (0.000-0.034)
[2025-07-24] MEDS: TIMOLOL MALEATE 0.5% OP SOLN 5 ML BOTTLE 1 DROP EACH EYE (20:36)
[2025-07-24 20:55] LABS: Thyroid Stimulating Hormone Reflex 1.450 uIU/mL (0.465-4.68)
[2025-07-24 23:00] LABS: Cannabinoid Screen Urine Negative (Negative)
[2025-07-25] VITALS (9 sets, daily range): BP systolic 148–165; BP diastolic 75–82; PULSE 63–81; RESP 16; TEMP 36.1–36.7; O2SAT 94–96
--- NOTE | 2025-07-25 | ECHO_ITS ---
Patient Info Name: Moris Mohamud Age: 79 years : 1945 Gender: Male Ht: 72 in Wt: 216 lbs BSA: 2.25 m2 HR: 66 bpm BP: 148 / 75 mmHg Heart Rhythm: Sinus Rhythm Technical Quality: Good Exam Date: 07/25/2025 9:13 AM Patient Status: O Admit Date: 07/24/2025 Exam Type: CA echo doppler color flow Complete two-dimensional, color flow and Doppler transthoracic echocardiogram is performed. Staff Referring Physician: Antonia Ferguson Trial Lawyer: Davie Rodriguez III Attending Provider: Chris Montenegro Summary 1. Complete two-dimensional, color flow and Doppler transthoracic echocardiogram is performed. 2. Normal left ventricular size and systolic function no regional wall motion abnormalities. 3. Grade 1 diastolic noncompliance. 4. Mild mitral regurgitation. 5. Mild left atrial enlargement. Left Ventricle Left ventricular chamber dimension is normal. Left ventricular systolic function is normal, estimated at 65-70. The left ventricular diastolic function is grade I diastolic dysfunction. Right Ventricle Right ventricular chamber dimension is normal. Left Atria Left atrial chamber dimension is mildly enlarged. Right Atria Right atrial chamber dimension is normal. Aortic Valve The aortic valve is normal. Pulmonic Valve The pulmonic valve is not well visualized. Mitral Valve The mitral valve has normal leaflets. There is mild mitral valve regurgitation. Tricuspid Valve The tricuspid valve leaflets are normal. Pericardium/Pleural The pericardium appears normal. Aorta The aortic root size at the sinus of Valsalva is normal. Left Ventricular Outflow Tract Name Value Normal LVOT 2D LVOT Diameter 2.5 cm LVOT Doppler LVOT Peak Velocity 124 cm/s LVOT Peak Gradient 6 mmHg LVOT Mean Gradient 3 mmHg LVOT VTI 28 cm LVOT VTI/AV VTI Ratio 0.9 LVOT Stroke Volume 132 ml LVOT CO 8.9 l/min LVOT CI 3.9 l/min/m2 Pulmonic Valve Name Value Normal PV Doppler PV Peak Velocity 98 cm/s PV Peak Gradient 4 mmHg PV Mean Gradient 2 mmHg PV Regurgitation Doppler WA Peak End Diastolic Velocity 107 cm/s Mitral Valve Name Value Normal MV Doppler MV Peak Gradient 4 mmHg MV Mean Gradient 1 mmHg MV Area (Cont Eq VTI) 5.3 cm2 MV Diastolic Function MV E Peak Velocity 75 cm/s MV A Peak Velocity 91 cm/s MV E/A 0.8 MV Decel Time (PW) 244 ms MV Annular TDI MV E/e' (Septal) 9.3 MV E/e' (Lateral) 8.1 MV E/e' (Average) 8.7 Tricuspid Valve Name Value Normal TV Annular TDI TV Lateral Selam s' Velocity 18.2 cm/s >=9.5 Aortic Valve Name Value Normal AV Doppler AV Peak Velocity 136 cm/s AV Peak Gradient 7 mmHg AV Mean Gradient 4 mmHg AV VTI 31 cm AV Area (Cont Eq VTI) 4.3 cm2 >=3.0 AV Area (Cont Eq Efren) 4.4 cm2 AV DI (Efren) 0.91 AV Regurgitation 2D LVOT Area 4.8 cm2 Ventricles Name Value Normal LV Dimensions 2D/MM IVS Diastolic Thickness (2D) 0.9 cm 0.6-1.0 LVID Diastole (2D) 4.5 cm 4.2-5.8 LVIW Diastolic Thickness (2D) 1.0 cm 0.6-1.0 LVID Systole (2D) 2.9 cm 2.5-4.0 LVOT Diameter 2.5 cm LV Mass (2D Cubed) 143.05 g 88.00-224.00 LV Mass Index (2D Cubed) 64 g/m2 49-115 Relative Wall Thickness (2D) 0.42 <=0.42 LV Fractional Shortening/Ejection Fraction 2D/MM LV Fractional Shortening (2D) 37 % 25-43 LV EF (2D Teichholz) 67 % LV Diastolic Volume (4C MOD) 73 ml LV EF (4C MOD) 67 % LV Diastolic Volume (2C MOD) 69 ml LV EF (2C MOD) 66 % LV Diastolic Volume (BP MOD) 74 ml 62-150 LV Diastolic Volume Index (BP MOD) 33 ml/m2 34-74 LV Systolic Volume (BP MOD) 23 ml 21-61 LV Systolic Volume Index (BP MOD) 10 ml/m2 11-31 LV EF (BP MOD) 69 % 52-72 LV Diastolic Length (4C) 8.2 cm LV Systolic Length (4C) 6.4 cm LV Stroke Volume (4C MOD) 49 ml Atria Name Value Normal LA Dimensions LA Volume (4C A-L) 58 ml LA Volume (BP A-L) 57 ml RA Dimensions RA Systolic Major Hunker Length (4C) 5.4 cm 2.1-2.7 RA Area (4C) 19.5 cm2 <=18.0 Report Signatures
[2025-07-25] MEDS: ENALAPRIL MALEATE 10 MG TABLET PO (08:15)
[2025-07-25] MEDS: SIMVASTATIN 20 MG TABLET PO (08:15)
[2025-07-25] MEDS: APIXABAN 2.5 MG TABLET PO ×2 (08:15→16:42)
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
[2025-07-25 09:06] LABS: Hematocrit 43.6 % (42.0-52.0); Hemoglobin 14.9 g/dL (14.0-18.0); Immature Granulocyte Percent A 0.2 % (0-0.5); Lymphocytes Absolute Auto 1.65 K/mm3 (0.9-3.2); Mean Corpuscular HGB Conc 34.2 g/dl (32-36); Mean Corpuscular Hemoglobin 32.1 pg (26-34); Mean Corpuscular Volume 94.0 fl (80-100); Nucleated Red Blood Cells Absolute Auto 0.000 K/mm3 (0.0-0.012); Nucleated Red Blood Cells Perc 0.0 % (0.0-0.2); Platelet Count Result 153 k/mm3 (150-375); Red Blood Count 4.64 M/mm3 (4.6-6.20); White Blood Count 4.6 K/mm3 (4.5-10.0)
[2025-07-25 10:42] LABS: Alanine Aminotransferase 24 U/L (6-50); Albumin Level 4.2 g/dL (3.5-5.1); Alkaline Phosphatase 67 U/L (38-126); Anion Gap 5 mmol/L (4-12); Aspartate Amino Transferase 25 U/L (17-59); Bilirubin,Total 0.7 mg/dL (0.2-1.3); Blood Urea Nitrogen 15 mg/dL (9-20); Calcium 9.2 mg/dL (8.4-10.2); Carbon Dioxide 26 mmol/L (22-30); Chloride 104 mmol/L (98-107); Estimated CRCL calculation 62 ml/min; Estimated Glomerular Filt Rate > 60; Glucose 124 mg/dL (65-110); Potassium 4.5 mmol/L (3.4-5.0); Sodium 135 mmol/L (137-145); Total Protein 7.0 g/dL (6.3-8.2)
[2025-07-25] MEDS: TIMOLOL MALEATE 0.5% OP SOLN 5 ML BOTTLE 1 DROP EACH EYE (21:11)
[2025-07-26] VITALS (10 sets, daily range): BP systolic 103–135; BP diastolic 55–82; PULSE 63–76; RESP 16–20; TEMP 36.1–36.6; O2SAT 94–97
[2025-07-26 04:45] LABS: Hematocrit 43.5 % (42.0-52.0); Hemoglobin 14.3 g/dL (14.0-18.0); Immature Granulocyte Percent A 0.4 % (0-0.5); Lymphocytes Absolute Auto 1.90 K/mm3 (0.9-3.2); Mean Corpuscular HGB Conc 32.9 g/dl (32-36); Mean Corpuscular Hemoglobin 31.2 pg (26-34); Mean Corpuscular Volume 94.8 fl (80-100); Nucleated Red Blood Cells Absolute Auto 0.000 K/mm3 (0.0-0.012); Nucleated Red Blood Cells Perc 0.0 % (0.0-0.2); Platelet Count Result 152 k/mm3 (150-375); Red Blood Count 4.59 M/mm3 (4.6-6.20); White Blood Count 4.9 K/mm3 (4.5-10.0)
[2025-07-26 04:56] LABS: Alanine Aminotransferase 22 U/L (6-50); Albumin Level 3.9 g/dL (3.5-5.1); Alkaline Phosphatase 59 U/L (38-126); Anion Gap 7 mmol/L (4-12); Aspartate Amino Transferase 20 U/L (17-59); Bilirubin,Total 0.5 mg/dL (0.2-1.3); Blood Urea Nitrogen 15 mg/dL (9-20); Calcium 9.2 mg/dL (8.4-10.2); Carbon Dioxide 25 mmol/L (22-30); Chloride 105 mmol/L (98-107); Estimated CRCL calculation 59 ml/min; Estimated Glomerular Filt Rate > 60; Glucose 112 mg/dL (65-110); Potassium 4.2 mmol/L (3.4-5.0); Sodium 137 mmol/L (137-145); Total Protein 6.5 g/dL (6.3-8.2)
[2025-07-26] MEDS: ENALAPRIL MALEATE 10 MG TABLET PO (11:13)
[2025-07-26] MEDS: TIMOLOL MALEATE 0.5% OP SOLN 5 ML BOTTLE 1 DROP EACH EYE ×2 (11:14→21:42)
[2025-07-26] MEDS: APIXABAN 2.5 MG TABLET PO ×2 (11:14→17:32)
[2025-07-26] MEDS: SIMVASTATIN 20 MG TABLET PO (11:14)
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
[2025-07-27] VITALS: PULSE 65
[2025-07-27 04:00] VITALS: PULSE 58
[2025-07-27 05:52] VITALS: BP 135/76; PULSE 54; RESP 20; TEMP 36.5; O2SAT 98
[2025-07-27 06:05] LABS: Hematocrit 45.2 % (42.0-52.0); Hemoglobin 15.3 g/dL (14.0-18.0); Immature Granulocyte Percent A 0.2 % (0-0.5); Lymphocytes Absolute Auto 1.96 K/mm3 (0.9-3.2); Mean Corpuscular HGB Conc 33.8 g/dl (32-36); Mean Corpuscular Hemoglobin 32.0 pg (26-34); Mean Corpuscular Volume 94.6 fl (80-100); Nucleated Red Blood Cells Absolute Auto 0.000 K/mm3 (0.0-0.012); Nucleated Red Blood Cells Perc 0.0 % (0.0-0.2); Platelet Count Result 160 k/mm3 (150-375); Red Blood Count 4.78 M/mm3 (4.6-6.20); White Blood Count 5.8 K/mm3 (4.5-10.0)
[2025-07-27 06:33] LABS: Alanine Aminotransferase 23 U/L (6-50); Albumin Level 4.2 g/dL (3.5-5.1); Alkaline Phosphatase 59 U/L (38-126); Anion Gap 8 mmol/L (4-12); Aspartate Amino Transferase 20 U/L (17-59); Bilirubin,Total 0.8 mg/dL (0.2-1.3); Blood Urea Nitrogen 16 mg/dL (9-20); Calcium 9.1 mg/dL (8.4-10.2); Carbon Dioxide 22 mmol/L (22-30); Chloride 105 mmol/L (98-107); Estimated CRCL calculation 60 ml/min; Estimated Glomerular Filt Rate > 60; Glucose 112 mg/dL (65-110); Potassium 4.2 mmol/L (3.4-5.0); Sodium 135 mmol/L (137-145); Total Protein 6.7 g/dL (6.3-8.2)
[2025-07-27 08:00] VITALS: PULSE 67
[2025-07-27] MEDS: SIMVASTATIN 20 MG TABLET PO (09:18)
[2025-07-27] MEDS: ENALAPRIL MALEATE 10 MG TABLET PO (09:18)
[2025-07-27] MEDS: APIXABAN 2.5 MG TABLET PO (09:18)
[2025-07-27] MEDS: TIMOLOL MALEATE 0.5% OP SOLN 5 ML BOTTLE 1 DROP EACH EYE (09:18)
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
== END 2025-07-27 15:45 | disposition home or self-care (01) | DRG 312 ==
LOC: ANHED 15:28 → ANH3MED 17:04
PROVIDERS: Family Medicine; Nurse Practitioner Adult Health; Admitting Provider General Practice; Emergency Provider Physician Assistant; Visit Provider Physician Assistant
DX: R55 Syncope and collapse (principal); E78.5 Hyperlipidemia, unspecified; I51.89 Other ill-defined heart diseases; I11.9 Hypertensive heart disease without heart failure; K40.90 Unilateral inguinal hernia, without obstruction or gangrene, not specified as recurrent; I34.0 Nonrheumatic mitral (valve) insufficiency; I65.23 Occlusion and stenosis of bilateral carotid arteries; G31.9 Degenerative disease of nervous system, unspecified; M54.2 Cervicalgia; M16.11 Unilateral primary osteoarthritis, right hip; M47.26 Other spondylosis with radiculopathy, lumbar region; R91.1 Solitary pulmonary nodule; G47.33 Obstructive sleep apnea (adult) (pediatric); F10.90 Alcohol use, unspecified, uncomplicated; Z99.89 Dependence on other enabling machines and devices; Z86.711 Personal history of pulmonary embolism; Z79.01 Long term (current) use of anticoagulants; Z90.49 Acquired absence of other specified parts of digestive tract; Z90.79 Acquired absence of other genital organ(s); Z86.73 Personal history of transient ischemic attack (TIA), and cerebral infarction without residual deficits
CPT/HCPCS: 36415; 70450; 70553; 71046; 71275; 74177; 80053; 80307; 83735; 84443; 84484; 85025; 85610; 85730; 93005; 93306; 93880; 95816; 99285; A9270; A9577; Q9967